=== PATIENT | female | born 2000 | race Caucasian/White ===

== ENCOUNTER 2025-01-01 16:10 | Observation (INO) | payer BC, SELFPAY ==
[2025-01-01 16:15] VITALS: BP 130/98; PULSE 103; RESP 18; TEMP 36.8; O2SAT 98; BMI 33.0
--- NOTE | 2025-01-01 16:27 | CT_ITS ---
PROCEDURE INFORMATION: Exam: CTA Chest With Contrast Exam date and time: 01/01/2025 5:34 PM Age: 24 years old Clinical indication: Other: Shortness of air, decreased breath sounds lft, pna TECHNIQUE: Imaging protocol: Computed tomographic angiography of the chest with contrast. Exam focused on the arteries. 3D rendering (Not supervised by radiologist): MIP and/or 3D reconstructed images were created by the technologist. Radiation optimization: All CT scans at this facility use at least one of these dose optimization techniques: automated exposure control; mA and/or kV adjustment per patient size (includes targeted exams where dose is matched to clinical indication); or iterative reconstruction. Contrast material: ISO 370; Contrast volume: 70 ml; Contrast route: INTRAVENOUS (IV); COMPARISON: No relevant prior studies available. FINDINGS: Pulmonary arteries: Normal. No pulmonary emboli. Aorta: Unremarkable. No aortic aneurysm. No aortic dissection. Lungs: There is near-complete consolidative atelectasis of the left lower lobe. There is a masslike area of soft tissue attenuation measuring approximately 3 cm in diameter in the left hilum which appears to produce obstruction of the left lower lobe bronchus. Right lung is clear. Pleural spaces: Unremarkable. No pneumothorax. No pleural effusion. Heart: Unremarkable. No cardiomegaly. No pericardial effusion. Lymph nodes: Masslike opacity in the left hilum may represent lymphadenopathy. Mild right paratracheal lymphadenopathy also noted. Bones/joints: Unremarkable. No acute fracture. Soft tissues: Unremarkable. IMPRESSION: Near-complete left lower lobe consolidative atelectasis with ill-defined left hilar mass producing apparent obstruction of the left lower lobe bronchus. This may represent lymphadenopathy or mass of bronchogenic origin. Mild right paratracheal lymphadenopathy also noted.
[2025-01-01 16:31] VITALS: BP 113/74; PULSE 97; RESP 20; O2SAT 97
--- NOTE | 2025-01-01 16:35 | ED_ITS ---
<Statement entered by Horacio Kuo MD - 01/01/25 21:50> I was consulted by the ASHISH, and we discussed the complexity of the problems being addressed. I approved the treatment and management plan for this patient's care in the emergency department, thus performing a substantive portion of the medical decision making. Horacio Kuo MD Discharge Plan Disposition Patient Disposition: Admitted Condition: Good Clinical Impressions Clinical Impression: Mass of left lung Discharge ED Provider: Horacio Kuo HPI <KARLIE Wright - Last Filed: 01/01/25 20:23> General Chief Complaint: Shortness of Breath/Dyspnea Stated Complaint: sent by phy-poss collapsed LT lung Time Seen by Provider: 01/01/25 16:16 Mode of Arrival: Ambulatory Source of Information: Patient Description of Symptoms (Recalled from ER Triage Doc. by RN): Pt presents with c/o possible collapsed lung. PT states she was diagnosed with pneumonia 2 weeks ago, completed antibiotic treatment. Pt had a follow up x-ray appointment due to patient feeling short of breath. X-ray result showed that her left lung was partially collapsed History of Present Illness HPI narrative: 24-year-old female with a 2-week history of shortness of breath, pleuritic type chest pain subjective fever and chills, patient was originally diagnosed with pneumonia , a couple weeks ago, finished a round of amoxicillin and doxycycline p.o. antibiotics, initially got better, but over the last several days she has had some worsening shortness of breath, and pleuritic type chest pain, she was seen by outside facility today had a chest x-ray performed which showed possible collapsed lung , she was instructed to come to the emergency department immediately. Patient was also diagnosed with influenza A 1 week ago. She denies any abdominal pain nausea vomiting constipation diarrhea, no urinary type symptomatology, patient is a former smoker, denies any alcohol or other drug use, other past medical history consistent with hyperlipidemia, anxiety/depression, initial triage vitals notable for tachycardia, SpO2 is 9495% on room air. Otherwise unremarkable vital signs. Related Data Allergies Allergy/AdvReac Type Severity Reaction Status Date / Time No Known Allergies Allergy Verified 01/01/25 16:49 PFSH <KARLIE Wright - Last Filed: 01/01/25 20:23> [facility] Disclaimer: The information contained in this section may have been updated after the patient was seen, as this information can be updated by other users. Social History (Updated 01/01/25 @ 19:53 by Arturo Ramos APRN) Smoking Status: Former smoker how long ago did patient quit smoking: Patient now vapes last time vaping was 2 weeks ago second hand exposure: No alcohol intake: never substance use type: denies use current occupational status: employed Travel in the last 8 weeks: None Have you lived/traveled outside [place] in past 30 days?: No Contact w/someone who lives/traveled outside US past 30 days?: No Exposure to someone with infectious disease in past 14 days?: No Do you have a fever (greater than 100.4 F or 38 C)?: No Have you tested positive for COVID-19: No Exposed to someone with COVID-19 in past 14 days?: No Do you have a sore throat?: No Do you have a cough?: No Do you have a headache?: No Do you have any weakness?: No Are you experiencing any nausea/vomitting?: No Do you have any diarrhea?: No Are you experiencing any unusual bleeding?: No Do you have any muscle aches/pain?: No Do you have any abdominal pain?: No Are you experiencing loss of taste or smell?: No <KARLIE Wright - Last Filed: 01/01/25 20:23> ROS Obtained: Yes All systems reviewed & no additional complaints except as documented Physical Exam <KARLIE Wright - Last Filed: 01/01/25 20:23> General General appearance: alert and in no apparent distress Head Head exam: atraumatic and normocephalic Eye Eye exam: Present normal appearance, PERRL and EOMI Neck Neck exam: Present full ROM; Absent meningismus Chest Chest inspection: Present normal inspection Respiratory Respiratory exam: Present other (There is some mild decreased breath sounds on the left, otherwise no Rales, no crackles, no tachypnea noted, no supracostal intercostal retractions at this time); Absent respiratory distress, wheezes, stridor, accessory muscle use or prolonged expiratory phase Cardiovascular Cardiovascular exam: Present normal rhythm and other (Pulses equal and symmetric in bilateral upper and lower extremities) Abdominal Exam Abdominal exam: Absent distention Extremities Exam Extremities exam: Absent edema Neurological Exam Neurological exam: Present alert Psychiatric Psychiatric exam: Present normal affect Skin Skin exam: Present warm and dry HEART Score <KARLIE Wright - Last Filed: 01/01/25 20:23> HEART Score HEART Score assessment performed?: Yes History (anamnesis): Slightly suspicious ECG: Normal Age: <45 years Risk factors: No known risk factors Troponin: </= normal limit HEART Score: 0 Critical Care <KARLIE Wright - Last Filed: 01/01/25 20:23> Critical Care Time Critical Care Time: No Medical Decision Making <KARLIE Wright - Last Filed: 01/01/25 20:23> Medical Records Medical records reviewed: Yes I reviewed the patient's medical records. Lam Inquiry Pt receiving controlled substance: No Lam was queried for this patient: No Vital Signs Vital Signs: 01/01/25 16:15 01/01/25 16:31 01/01/25 20:00 Temperature 98.3 F 98.8 F Temperature Source Oral Oral Pulse Rate 97 H 98 H Pulse Rate [Right] 103 H Respiratory Rate 18 20 24 Blood Pressure 113/74 120/70 Blood Pressure [Right Arm] 130/98 H Blood Pressure Mean [Right Arm] 108 Blood Pressure Source Automatic Cuff Blood Pressure Source [Right Arm] Automatic Cuff Blood Pressure Position Sitting Blood Pressure Position [Right Arm] Sitting 02 Sat by Pulse Oximetry 98 97 Oxygen Delivery Method Room Air Room Air Room Air Lab Data Lab results reviewed: Yes I reviewed the patient's lab results. Labs: Lab Results 01/01/25 16:25: WBC 8.9, RBC 4.97, Hgb 14.0, Hct 41.9, MCV 84.3, MCH 28.2, MCHC 33.4, RDW 12.1, Plt Count 285, MPV 9.4, Neut % (Auto) 68.2, Lymph % (Auto) 23.9, Avery % (Auto) 6.3, Eos % (Auto) 0.8, Baso % (Auto) 0.5, Neut # (Auto) 6.0, Lymph # (Auto) 2.1, Avery # (Auto) 0.6, Eos # (Auto) 0.1, Baso # (Auto) 0.0, Sodium 134 L, Potassium 3.6, Chloride 103, Carbon Dioxide 26, Anion Gap 8.6, BUN 8, Creatinine 0.90, Estimated Creat Clear 121, Estimated GFR 77, Est GFR ( Amer) 93, Glucose 122 H, Calcium 9.5, Magnesium 1.7, Total Bilirubin 0.9, AST 33, ALT 34, Alkaline Phosphatase 78, Troponin I < 0.01, NT-Pro-B Natriuret Pep < 20.0, Total Protein 7.7, Albumin 4.6, Globulin 3.1, Albumin/Globulin Ratio 1.5 01/01/25 16:42: Urine Color Yellow, Urine Appearance Clear, Urine pH 6.5, Ur Specific Rex 1.020, Urine Protein Negative, Urine Glucose (UA) Negative, Urine Ketones Negative, Urine Blood Negative, Urine Nitrate Negative, Urine Bilirubin Negative, Urine Urobilinogen 0.2, Ur Leukocyte Esterase Negative, Urine RBC Occasional, Urine WBC Occasional, Ur Squamous Epith Cells 3-5, Urine Bacteria Trace, Urine HCG, Qual Negative 01/01/25 19:20: Troponin I < 0.01 01/01/25 16:25 01/01/25 16:25 Response Orders (Tests/Meds): ED MEDICATIONS Generic Name Dose Route Start Last Admin Trade Name Freq PRN Reason Stop Dose Admin Piperacillin Sod/Tazobactam 50 mls @ 100 mls/hr 01/02/25 00:27 Sod 3.375 gm/ Sodium Chloride IV 01/12/25 00:26 Q6H TESSIE Discontinued Medications Generic Name Dose Route Start Last Admin Trade Name Freq PRN Reason Stop Dose Admin Piperacillin Sod/Tazobactam 50 mls @ 100 mls/hr 01/01/25 18:27 01/01/25 19:12 Sod 3.375 gm/ Sodium Chloride IV 01/01/25 18:56 100 mls/hr ONCE ONE Administration Iopamidol 70 ml 01/01/25 17:34 01/01/25 17:36 Iopamidol-370 (76%);100ml Bottle IV 01/01/25 17:35 70 ml ONCE ONE Administration Sodium Chloride 10 ml 01/01/25 17:34 01/01/25 17:35 Sodium Chloride 0.9% 10ml Syr (Rad Only) IV 01/01/25 17:35 10 ml ONCE ONE Administration Sodium Chloride 50 ml 01/01/25 17:34 01/01/25 17:35 0.9 % Sodium Chloride 50 Ml Vial IV 01/01/25 17:35 50 ml ONCE ONE Administration ORDERS Category Date Time Status CT angio chest PE protocol Stat Cat Scan 01/01/25 16:27 Completed Pulmonology Consult [Consult to Pulmonology] [CONS] Cons 01/01/25 18:39 Active Routine CRP [C-Reactive Protein] AMLAB Lab 01/02/25 06:00 Ordered Complete Blood Count Auto Diff AMLAB Lab 01/02/25 06:00 Ordered Complete Blood Count Auto Diff Stat Lab 01/01/25 16:25 Completed Comprehensive Metabolic Panel AMLAB Lab 01/02/25 06:00 Ordered Comprehensive Metabolic Panel Stat Lab 01/01/25 16:25 Completed Erythrocyte Sedimentation Rate AMLAB Lab 01/02/25 06:00 Ordered Histoplasma [place] Ag S AMLAB Lab 01/02/25 06:00 Ordered LDH [Lactate Dehydrogenase] AMLAB Lab 01/02/25 06:00 Ordered Magnesium AMLAB Lab 01/02/25 06:00 Ordered Magnesium Stat Lab 01/01/25 16:25 Completed NT Pro Brain Natriuretic Pep. Stat Lab 01/01/25 16:25 Completed Rapid PCR Covid and Flu A/B Stat Lab 01/01/25 18:52 Received Troponin I Q3H Lab 01/01/25 19:20 Completed Troponin I Q3H Lab 01/01/25 22:30 Ordered Troponin I Stat Lab 01/01/25 16:25 Completed Urinalysis and Microscopic Stat Lab 01/01/25 16:42 Completed Urine , HCG Qual. Stat Lab 01/01/25 16:42 Completed Blood Culture Stat Micro 01/01/25 18:51 Received MDM Narrative Medical Decision Narrative: 24-year-old female presents emergency department with shortness of breath and chest pain, differential diagnosis of but limited to, pneumonia, acute bronchitis, pneumothorax, pleural effusion, PE, cardiac arrhythmia, electrolyte disturbance, COPD exacerbation, acute pulmonary edema. Obtain basic laboratory studies, CTA chest with and without contrast, EKG, opponent, proBNP, urinalysis, magnesium level, hCG urine qualitative, will obtain rapid antigen swabs for covid and flu Urinalysis unremarkable, urine hCG qualitative negative CMP unremarkable Reviewed the patient's CTA chest with and without contrast on the corresponding radiologic report, near complete left lower lobe consolidative atelectasis with ill-defined left hilar mass producing apparent obstruction of the left lower lobe bronchus, this may represent lymphadenopathy or mass of bronchogenic origin, mild right paratracheal lymphadenopathy also noted. CBC is unremarkable I discussed patient case with the perfumer on-call Dr. Hendrix, at approximately 6:20 PM he recommends admission to the hospitalist service, starting prophylactic IV Zosyn, with bronchoscopy in the morning n.p.o. after midnight. Discussed patient case with the on-call hospitalist 6:30 PM, he is agree with current admission plan/treatment plan. Patient be admitted with pulmonology to see. Bronchoscope in the morning. Will obtain blood cultures, n.p.o. after midnight, IV Zosyn. I discussed need for admission with the patient family bedside patient famine agreement current treatment plan/admission plan. <Horacio Kuo MD - Last Filed: 01/01/25 16:43> Vital Signs Vital Signs: 01/01/25 16:15 01/01/25 16:31 01/01/25 20:00 Temperature 98.3 F 98.8 F Temperature Source Oral Oral Pulse Rate 97 H 98 H Pulse Rate [Right] 103 H Respiratory Rate 18 20 24 Blood Pressure 113/74 120/70 Blood Pressure [Right Arm] 130/98 H Blood Pressure Mean [Right Arm] 108 Blood Pressure Source Automatic Cuff Blood Pressure Source [Right Arm] Automatic Cuff Blood Pressure Position Sitting Blood Pressure Position [Right Arm] Sitting 02 Sat by Pulse Oximetry 98 97 Oxygen Delivery Method Room Air Room Air Room Air Lab Data Labs: Lab Results 01/01/25 16:25: WBC 8.9, RBC 4.97, Hgb 14.0, Hct 41.9, MCV 84.3, MCH 28.2, MCHC 33.4, RDW 12.1, Plt Count 285, MPV 9.4, Neut % (Auto) 68.2, Lymph % (Auto) 23.9, Avery % (Auto) 6.3, Eos % (Auto) 0.8, Baso % (Auto) 0.5, Neut # (Auto) 6.0, Lymph # (Auto) 2.1, Avery # (Auto) 0.6, Eos # (Auto) 0.1, Baso # (Auto) 0.0, Sodium 134 L, Potassium 3.6, Chloride 103, Carbon Dioxide 26, Anion Gap 8.6, BUN 8, Creatinine 0.90, Estimated Creat Clear 121, Estimated GFR 77, Est GFR ( Amer) 93, Glucose 122 H, Calcium 9.5, Magnesium 1.7, Total Bilirubin 0.9, AST 33, ALT 34, Alkaline Phosphatase 78, Troponin I < 0.01, NT-Pro-B Natriuret Pep < 20.0, Total Protein 7.7, Albumin 4.6, Globulin 3.1, Albumin/Globulin Ratio 1.5 01/01/25 16:42: Urine Color Yellow, Urine Appearance Clear, Urine pH 6.5, Ur Specific Rex 1.020, Urine Protein Negative, Urine Glucose (UA) Negative, Urine Ketones Negative, Urine Blood Negative, Urine Nitrate Negative, Urine Bilirubin Negative, Urine Urobilinogen 0.2, Ur Leukocyte Esterase Negative, Urine RBC Occasional, Urine WBC Occasional, Ur Squamous Epith Cells 3-5, Urine Bacteria Trace, Urine HCG, Qual Negative 01/01/25 19:20: Troponin I < 0.01 Response Orders (Tests/Meds): ED MEDICATIONS Generic Name Dose Route Start Last Admin Trade Name Freq PRN Reason Stop Dose Admin Piperacillin Sod/Tazobactam 50 mls @ 100 mls/hr 01/02/25 00:27 Sod 3.375 gm/ Sodium Chloride IV 01/12/25 00:26 Q6H TESSIE Discontinued Medications Generic Name Dose Route Start Last Admin Trade Name Freq PRN Reason Stop Dose Admin Piperacillin Sod/Tazobactam 50 mls @ 100 mls/hr 01/01/25 18:27 01/01/25 19:12 Sod 3.375 gm/ Sodium Chloride IV 01/01/25 18:56 100 mls/hr ONCE ONE Administration Iopamidol 70 ml 01/01/25 17:34 01/01/25 17:36 Iopamidol-370 (76%);100ml Bottle IV 01/01/25 17:35 70 ml ONCE ONE Administration Sodium Chloride 10 ml 01/01/25 17:34 01/01/25 17:35 Sodium Chloride 0.9% 10ml Syr (Rad Only) IV 01/01/25 17:35 10 ml ONCE ONE Administration Sodium Chloride 50 ml 01/01/25 17:34 01/01/25 17:35 0.9 % Sodium Chloride 50 Ml Vial IV 01/01/25 17:35 50 ml ONCE ONE Administration ORDERS Category Date Time Status CT angio chest PE protocol Stat Cat Scan 01/01/25 16:27 Completed Pulmonology Consult [Consult to Pulmonology] [CONS] Cons 01/01/25 18:39 Active Routine CRP [C-Reactive Protein] AMLAB Lab 01/02/25 06:00 Ordered Complete Blood Count Auto Diff AMLAB Lab 01/02/25 06:00 Ordered Complete Blood Count Auto Diff Stat Lab 01/01/25 16:25 Completed Comprehensive Metabolic Panel AMLAB Lab 01/02/25 06:00 Ordered Comprehensive Metabolic Panel Stat Lab 01/01/25 16:25 Completed Erythrocyte Sedimentation Rate AMLAB Lab 01/02/25 06:00 Ordered Histoplasma [place] Ag S AMLAB Lab 01/02/25 06:00 Ordered LDH [Lactate Dehydrogenase] AMLAB Lab 01/02/25 06:00 Ordered Magnesium AMLAB Lab 01/02/25 06:00 Ordered Magnesium Stat Lab 01/01/25 16:25 Completed NT Pro Brain Natriuretic Pep. Stat Lab 01/01/25 16:25 Completed Rapid PCR Covid and Flu A/B Stat Lab 01/01/25 18:52 Received Troponin I Q3H Lab 01/01/25 19:20 Completed Troponin I Q3H Lab 01/01/25 22:30 Ordered Troponin I Stat Lab 01/01/25 16:25 Completed Urinalysis and Microscopic Stat Lab 01/01/25 16:42 Completed Urine , HCG Qual. Stat Lab 01/01/25 16:42 Completed Blood Culture Stat Micro 01/01/25 18:51 Received ECG Data Tracing #1: ECG Narrative: Independently interpreted by me rate is 97, rhythm is regular, axis is normal, no ST elevation in anatomical contiguous leads, QTc 380
[2025-01-01 16:39] LABS: Eosinophils # 0.1 K/mm3 (0.0-0.4); Eosinophils % 0.8 % (0.1-12.0); Lymphocytes # 2.1 K/mm3 (0.7-4.5)
--- NOTE | 2025-01-01 16:41 | ECG_ITS ---
APPROVED REPORT Exam: Resting ECG HR:97 bpm ECG Measurements Heart Rate 97 AXES MD 139 P 50 QRSd 83 QRS 72 QT 326 T 7 QTc 380 Conclusion SINUS RHYTHM NONSPECIFIC T-WAVE ABNORMALITY BORDERLINE ECG Electronically signed by : ION LAZO, 01/02/2025 00:19:31
[2025-01-01 16:56] LABS: Microscopic, Urine URINE MICROSCOPIC (MICROSCOPIC)
[2025-01-01 16:57] LABS: Appearance,Urine CLEAR (Clear); Bilirubin,Urine Negative (Negative); Blood, Urine Negative (Negative); Color,Urine YELLOW (Yellow); Glucose,Urine (UA) Negative (Negative); Ketones,Urine Negative (Negative); Leukocyte Esterase,Urine Negative (Negative); Nitrate,Urine Negative (Negative); PH,Urine 6.5 (5.0-8.5); Protein,Urine Negative (Negative); Urobilinogen,Urine 0.2 EU/dl (0.2)
[2025-01-01 16:59] LABS: Urine Pregnancy, HCG Qual. Negative (Negative)
--- NOTE | 2025-01-01 17:31 | PC.NURSE ---
pt to ct scan via wheelchair
[2025-01-01] MEDS: 0.9 % SODIUM CHLORIDE 50 ML VIAL IV (17:35)
[2025-01-01] MEDS: SODIUM CHLORIDE 0.9% 10ML SYR (RAD ONLY) 10 ML IV (17:35)
[2025-01-01] MEDS: IOPAMIDOL-370 (76%);100ML BOTTLE 70 ML IV (17:36)
[2025-01-01 17:41] LABS: Bacteria,Urine Trace /lpf; RBC,Urine Occasional #/hpf (0-3); WBC,Urine Occasional #/hpf (0-3)
--- NOTE | 2025-01-01 17:41 | PC.NURSE ---
pt back from ct scan
[2025-01-01 17:47] LABS: Albumin Level 4.6 g/dl (3.5-5.0); Chloride 103 mmol/L (98-107); Potassium 3.6 mmoL/L (3.5-5.1); Sodium 134 mmol/L (136-145)
[2025-01-01 17:50] LABS: Alanine Aminotransferase 34 U/L (12-78); Albumin/Globulin Ratio 1.5 (1.1-1.8); Alkaline Phosphatase 78 U/L (38-126); Anion Gap 8.6 mEq/L (5-15); Aspartate Amino Transferase 33 U/L (14-36); Bilirubin,Total 0.9 mg/dl (0.2-1.3); Blood Urea Nitrogen 8 mg/dl (7-17); Calcium 9.5 mg/dl (8.4-10.2); Carbon Dioxide 26 mmol/L (22.0-30.0); Creatinine Clearance Estimated 121 mL/min (50-200); Estimated Glomerular Filt Rate 77 ml/min (>60); GFR (African American) 93 ML/MIN (>60); Globulin 3.1 g/dL (1.3-3.2); Glucose 122 mg/dl (74-100); Total Protein,Serum 7.7 g/dl (6.3-8.2)
[2025-01-01 17:51] LABS: Magnesium 1.7 mg/dl (1.6-2.3)
[2025-01-01 18:00] LABS: NT Pro Brain Natriuretic Pep. < 20.0 pg/mL (0-125)
[2025-01-01 18:11] LABS: Basophils % 0.5 % (0.1-2.0); Hematocrit 41.9 % (37.0-47.0); Lymphocytes % 23.9 % (10-50); Mean Corpuscular HGB Conc 33.4 g/dL (31.8-35.4); Mean Corpuscular Hemoglobin 28.2 pg (27.0-31.2); Mean Corpuscular Volume 84.3 fl (81-99); Mean Platelet Volume 9.4 fl (7.4-10.4); Monocytes # 0.6 K/mm3 (0.1-1.0); Monocytes % 6.3 % (1.7-9.3); Neutrophils % 68.2 % (37.0-80.0); Platelet Count 285 K/mm3 (142-424); Red Blood Count 4.97 M/mm3 (4.20-5.40); Red Cell Distribution Width 12.1 % (11.5-17.5); White Blood Count 8.9 K/mm3 (4.8-10.8)
--- NOTE | 2025-01-01 18:14 | PC.NURSE ---
Dr Hendrix paged for KARLIE Galvez. The coal crusher operator called and left message for him to call ER
[2025-01-01 18:49] LABS: Troponin I < 0.01 ng/ml (0.00-0.034)
[2025-01-01 19:00] LABS: Coronavirus 19, PCR Not Detected (NotDetected); Influenza A, PCR Not Detected (NotDetected); Influenza B, PCR Not Detected (NotDetected)
[2025-01-01] MEDS: PIPERACILLIN/TAZO 3.375 GM in 0.9 % SODIUM CHLORIDE 50 ML IV (19:12)
--- NOTE | 2025-01-01 19:25 | PC.NURSE ---
rounded on pt at this time. pt voices no needs. call light in reach.
--- NOTE | 2025-01-01 19:35 | PC.NURSE ---
Report called to Kelsey RN Pt transported to floor via wheelchair with IV. Skin pink warm and dry REsp full and very slightly labored Speech clear and appropriate
--- NOTE | 2025-01-01 19:44 | P.HP_ITS ---
<Statement entered by Nixon Burns MD - 01/10/25 11:02> I personally examined patient and agree with the plan of care outlined by the PROFESSOR OF PATHOLOGY. 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 Noting that she does vape but her last time she vape was approximately 2 weeks ago. She began to feel ill ended up being tested positive for flu. Also placed on 2 different antibiotics with no improvement. Patient also noted placed on steroids with no effect. Patient now has a cough that she says is dry does not get anything up. Noting that if she takes a deep breath it causes left lung pain. But short shallow breaths do not hurt. Was seen at an outside facility for possible collapsed lung on chest x-ray. She has come to the emergency room. Where CT scan was done. Also please note that the patient was diagnosed with influenza A 1 week ago. Present room air saturations 94%. Mild tachycardia. The CT scan was done here that showed a masslike lesion left lower base. With complete atelectasis of the left lower lung medial aspect. Daytime provider Dr. Katz was also informed to the patient has placed orders including pulmonary consult. Patient has been told that she will be n.p.o. after midnight. For possible bronchoscopy or other procedure. Reviewed family history in grandparents on both sides there has been cancer and also a great uncle but the people were much older into their 60s or 70s before these cancers develop. There is no history of any genetic testing checking for BRCA1 or BRCA2. Patient did note she had a lumpectomy done of one of her breast that was benign. And has not been in the hospital overnight since she was a young child. [facility] Disclaimer: The information contained in this section may have been updated after the patient was seen, as this information can be updated by other users. Social History (Updated 01/01/25 @ 19:53 by Arturo Ramos APRN) Smoking Status: Former smoker how long ago did patient quit smoking: Patient now vapes last time vaping was 2 weeks ago second hand exposure: No alcohol intake: never substance use type: denies use current occupational status: employed Travel in the last 8 weeks: None Other Medical History Have you received the Flu Vaccine for this season: No Have you received the Pneumonia Vaccine: No Review of Systems Review of Systems Review of systems:: pertinent systems reviewed and negative unless documented below Constitutional Constitutional: Reports as per HPI, Reports body ache(s) and Reports poor appet ite Comments: Has lost some weight but was dieting Eyes Eyes: Reports as per HPI ENT Ears, Nose, Mouth, and Throat: Reports as per HPI *Cardiovascular Cardiovascular: Reports as per HPI and Reports dyspnea *Respiratory Respiratory: Reports chest congestion, Reports cough and Reports dyspnea Comments: Chest pain on deep breath *Gastrointestinal Gastrointestinal: Reports as per HPI *Genitourinary Genitourinary: Reports as per HPI *Musculoskeletal Musculoskeletal: Reports as per HPI Integumentary/Breasts Skin/Breast: Reports as per HPI *Neurologic Neurologic: Reports as per HPI Psychiatric Psychiatric: Reports as per HPI Endocrine Endocrine: Reports as per HPI Hematologic/Lymphatic Hematologic/Lymphatic: Reports as per HPI Meds Home Medications and Allergies New Prescriptions to Start Prescriptions: Allergies Allergy/AdvReac Type Severity Reaction Status Date / Time No Known Allergies Allergy Verified 01/01/25 16:49 Exam Data for Last 24 hours Vital signs and Labs for Last 24 Hours: Temp Pulse Resp BP Pulse Ox O2 Del Method 98.3 F 97 H 20 113/74 97 Room Air 01/01/25 16:15 01/01/25 16:31 01/01/25 16:31 01/01/25 16:31 01/01/25 16:31 01/01/25 16:31 Laboratory Results - last 24 hr 01/01/25 16:25: WBC 8.9, RBC 4.97, Hgb 14.0, Hct 41.9, MCV 84.3, MCH 28.2, MCHC 33.4, RDW 12.1, Plt Count 285, MPV 9.4, Neut % (Auto) 68.2, Lymph % (Auto) 23.9, [place] % (Auto) 6.3, Eos % (Auto) 0.8, Baso % (Auto) 0.5, Neut # (Auto) 6.0, Lymph # (Auto) 2.1, [place] # (Auto) 0.6, Eos # (Auto) 0.1, Baso # (Auto) 0.0, Sodium 134 L, Potassium 3.6, Chloride 103, Carbon Dioxide 26, Anion Gap 8.6, BUN 8, Creatinine 0.90, Estimated Creat Clear 121, Estimated GFR 77, Est GFR ( Amer) 93, Glucose 122 H, Calcium 9.5, Magnesium 1.7, Total Bilirubin 0.9, AST 33, ALT 34, Alkaline Phosphatase 78, Troponin I < 0.01, NT-Pro-B Natriuret Pep < 20.0, Total Protein 7.7, Albumin 4.6, Globulin 3.1, Albumin/Globulin Ratio 1.5 01/01/25 16:42: Urine Color Yellow, Urine Appearance Clear, Urine pH 6.5, Ur Specific [place] 1.020, Urine Protein Negative, Urine Glucose (UA) Negative, Urine Ketones Negative, Urine Blood Negative, Urine Nitrate Negative, Urine Bilirubin Negative, Urine Urobilinogen 0.2, Ur Leukocyte Esterase Negative, Urine RBC Occasional, Urine WBC Occasional, Ur Squamous Epith Cells 3-5, Urine Bacteria Trace, Urine HCG, Qual Negative I & O for Last 24 hours: Intake & Output 12/30/24 12/31/24 01/01/25 01/02/25 05:59 05:59 05:59 05:59 Weight 175 lb Radiology Reports for the Last 24 Hours: CT CHEST Narrative: here is near-complete consolidative atelectasis of the left lower lobe. There is a masslike area of soft tissue attenuation measuring approximately 3 cm in diameter in the left hilum which appears to produce obstruction of the left lower lobe bronchus. Right lung is clear. Pleural spaces: Unremarkable. No pneumothorax. No pleural effusion. Heart: Unremarkable. No cardiomegaly. No pericardial effusion. Lymph nodes: Masslike opacity in the left hilum may represent lymphadenopathy. Mild right paratracheal lymphadenopathy also noted. Constitutional Constitutional: no acute distress and obese Comments: Patient resting comfortably in bed head elevated *Routine HEENT Exam Head: Present normocephalic and atraumatic Eye: Present EOMI, PERRL and normal accommodation ENT: Present mucous membranes moist, oropharynx clear, nares patent and external ear normal *Routine Neck Exam Neck: Present supple and full ROM Comments: No tenderness or masses felt Routine Chest/Breast/Axilla Exam Comments: No chest wall or breast tenderness noted *Routine Respiratory Exam Respiratory: Present CTA bilaterally, normal respiratory effort, able to speak in complete sentences and symmetric chest movement Comments: Examination of breath sounds is completely normal. She has equal breath sounds both lower lungs bilaterally.. She does have a dry cough *Routine Cardiovascular Exam Cardiovascular: Present RRR, Normal S1 and Normal S2 Comments: Normal cardiovascular *Routine Abdominal Exam Abdominal: Present soft, normoactive bowel sounds and obese Comments: No tenderness found *Routine Rectal Exam Rectal:: deferred *Routine Genitalia Exam Genitalia:: deferred *Routine Extremities Exam Extremities: Present full ROM, pulses intact and normal capillary refill Routine Back/Spine/Pelvis Exam Back/Spine: Present full ROM and CVA tenderness Comments: Back normal exam visually no signs of discomfort can moves with good full range of motion *Routine Skin Exam Skin: Present intact, dry, warm and normal turgor *Routine Neurological Exam Neurological: Present alert, oriented X3, CN II-XII intact, normal reflexes, moving all extremities, normal tone, vision grossly intact, hearing grossly intact and normal speech Routine Psychiatric Exam Psychiatric: Present normal affect, normal thought process, cooperative, good insight and good judgment H&P: Result Impressions 1. Respiratory infection post flu with atelectasis left lower lung, possible unidentified infectious component 2. Left lower lung question mass versus lymph node lymphadenopathy blocking bronchial Imaging and Cardiology CT scan - chest: Additional comments: here is near-complete consolidative atelectasis of the left lower lobe. There is a masslike area of soft tissue attenuation measuring approximately 3 cm in diameter in the left hilum which appears to produce obstruction of the left lower lobe bronchus. Right lung is clear. Pleural spaces: Unremarkable. No pneumothorax. No pleural effusion. Heart: Unremarkable. No cardiomegaly. No pericardial effusion. Lymph nodes: Masslike opacity in the left hilum may represent lymphadenopathy. Mild right paratracheal lymphadenopathy also noted. Assessment and Plan *Assessment and plan (1) Mass of left lung: Status: Acute Category: Medical Code(s): R91.8 - Other nonspecific abnormal finding of lung field (2) Pneumonia involving left lung: Status: Acute Qualifiers: Pneumonia type: due to unspecified organism Lung location: lower lobe of lung Qualified Code(s): J18.9 - Pneumonia, unspecified organism Category: Medical Code(s): J18.9 - Pneumonia, unspecified organism (3) Atelectasis of left lung: Status: Acute Category: Medical Code(s): J98.11 - Atelectasis (4) Cough: Status: Acute Qualifiers: Cough type: acute Qualified Code(s): R05.1 - Acute cough Category: Medical Code(s): R05.9 - Cough, unspecified (5) Post-influenza syndrome: Status: Acute Category: Medical Code(s): G93.31 - Postviral fatigue syndrome Plan 1. Unsure of what this left lower lung is a mass versus a lymph node that is blocked blocking one of the bronchial. Pulmonology has been consulted will evaluate the patient tomorrow possibly bronchoscopy.. Will continue upon antibiotics. At present patient does not need any oxygen. Patient and family updated on future medical plans as to the evaluation by pulmonology to see the patient in the morning
--- NOTE | 2025-01-01 19:52 | PC.NURSE ---
Patient arrived to floor via wheelchair from ED at 19:50.
[2025-01-01 20:00] VITALS: BP 120/70; PULSE 98; RESP 24; TEMP 37.1; O2SAT 96
[2025-01-01 20:05] VITALS: BP 121/70; PULSE 92; RESP 17; TEMP 37.3; O2SAT 100; BMI 33.0
[2025-01-01 20:07] LABS: Troponin I < 0.01 ng/ml (0.00-0.034)
[2025-01-01] MEDS: MAGNESIUM SULFATE IN WATER 2 GM/50 ML PIGGYBACK IV ×2 (22:37→23:40)
[2025-01-01 23:30] LABS: Troponin I < 0.01 ng/ml (0.00-0.034)
[2025-01-01] MEDS: MELATONIN 5MG TABLET 5 MG PO (23:58)
[2025-01-02] VITALS (16 sets, daily range): BP systolic 98–149; BP diastolic 60–95; PULSE 69–111; RESP 16–22; TEMP 36.6–37.2; O2SAT 91–100; BMI 33.0
--- NOTE | 2025-01-02 | XR_ITS ---
FINAL REPORT CLINICAL HISTORY: BRONCH IN OR FT 1.3 MINS 26.89 mGy FINDINGS: FLUOROSCOPY LESS THAN 1 HOUR HISTORY: Fluoroscopy guidance. Fluoroscopic guidance was provided for bronchoscopy in the OR. A single spot film was obtained. A total of 1.3 minutes of fluoroscopy time were used. Total DAP: 26.89 mGy IMPRESSION: As above. Reviewed, Interpreted and Dictated by Ginger Holguin MD Transcribed by Jocelyn Sam Authenticated and [facility]
[2025-01-02] MEDS: PIPERCILLIN/TAZO 3.375 GM in 0.9 % SODIUM CHLORIDE 50 ML IV ×3 (00:46→15:22)
--- NOTE | 2025-01-02 05:51 | PC.NURSE ---
Pt.was admitted overnight with c/o pneumonia and possible left lower lung mass. Pt is alert and orientated x 4. Pt. is on room air. Pt. c/o pain to chest with deep inspiration. Pt. states she had 2 courses of antibiotics for the pneumonia and it did not get better. Pt. denies fever, has a cough. Admitted for pulmonary consult. Pt. slept well overnight. VSS, Personal items and call núñez in reach.
[2025-01-02 06:59] LABS: Basophils % 0.3 % (0.1-2.0); Eosinophils # 0.2 K/mm3 (0.0-0.4); Hematocrit 37.8 % (37.0-47.0); Hemoglobin 12.6 g/dL (12.2-16.2); Lymphocytes # 2.4 K/mm3 (0.7-4.5); Lymphocytes % 32.3 % (10-50); Mean Corpuscular HGB Conc 33.3 g/dL (31.8-35.4); Mean Corpuscular Hemoglobin 28.1 pg (27.0-31.2); Mean Corpuscular Volume 84.2 fl (81-99); Mean Platelet Volume 9.2 fl (7.4-10.4); Monocytes # 0.7 K/mm3 (0.1-1.0); Monocytes % 9.7 % (1.7-9.3); Neutrophils % 54.4 % (37.0-80.0); Platelet Count 233 K/mm3 (142-424); Red Blood Count 4.49 M/mm3 (4.20-5.40); Red Cell Distribution Width 12.3 % (11.5-17.5); White Blood Count 7.3 K/mm3 (4.8-10.8)
[2025-01-02 07:04] LABS: Alanine Aminotransferase 27 U/L (12-78); Albumin Level 3.9 g/dl (3.5-5.0); Albumin/Globulin Ratio 1.4 (1.1-1.8); Alkaline Phosphatase 61 U/L (38-126); Anion Gap 6.8 mEq/L (5-15); Aspartate Amino Transferase 27 U/L (14-36); Bilirubin,Total 1.3 mg/dl (0.2-1.3); Blood Urea Nitrogen 7 mg/dl (7-17); Calcium 8.4 mg/dl (8.4-10.2); Carbon Dioxide 27 mmol/L (22.0-30.0); Chloride 106 mmol/L (98-107); Creatinine Clearance Estimated 121 mL/min (50-200); Estimated Glomerular Filt Rate 77 ml/min (>60); GFR (African American) 93 ML/MIN (>60); Globulin 2.7 g/dL (1.3-3.2); Glucose 107 mg/dl (74-100); Lactate Dehydrogenase 177 U/L (313-618); Potassium 3.8 mmoL/L (3.5-5.1); Sodium 136 mmol/L (136-145); Total Protein,Serum 6.6 g/dl (6.3-8.2)
[2025-01-02 07:10] LABS: C-Reactive Protein 44.6 mg/L (0-4)
[2025-01-02 08:00] LABS: Erythrocyte Sedimentation Rate 22 mm/hr (0-20)
[2025-01-02] MEDS: SODIUM CHLORIDE 3% 15ML NEB 3 ML IH (09:56)
--- NOTE | 2025-01-02 11:38 | PC.NURSE ---
pt taken down to pre op for broncoscopy. consent is to be signed in preop and all questions answered by pulmonology.
--- NOTE | 2025-01-02 12:00 | EXP.ANES.CKL ---
[facility] Disclaimer: The information contained in this section may have been updated after the patient was seen, as this information can be updated by other users. Surgical History (Updated 01/01/25 @ 20:29 by Ailyn Barraza RN) History of appendectomy Social History (Updated 01/01/25 @ 20:31 by Ailyn Barraza RN) Smoking Status: Former smoker how long ago did patient quit smoking: Patient now vapes last time vaping was 2 weeks ago second hand exposure: No alcohol intake: never substance use type: denies use current occupational status: employed Travel in the last 8 weeks: None Have you lived/traveled outside [place] in past 30 days?: No Contact w/someone who lives/traveled outside US past 30 days?: No Exposure to someone with infectious disease in past 14 days?: No Do you have a fever (greater than 100.4 F or 38 C)?: No Have you tested positive for COVID-19: No Exposed to someone with COVID-19 in past 14 days?: No Do you have a sore throat?: No Do you have a cough?: No Do you have a headache?: No Do you have any weakness?: No Are you experiencing any nausea/vomitting?: No Do you have any diarrhea?: No Are you experiencing any unusual bleeding?: No Do you have any muscle aches/pain?: No Do you have any abdominal pain?: No Are you experiencing loss of taste or smell?: No [facility] Anesthesia Checklist Patient Identification Patient Identification: Arm Band Structural Data Admitted From: Home Planned Operative Procedure/s: Bronchoscopy with Biopsy + EBUS Consent for Planned Operative Procedure(s) Verified: Yes Verified Documents: Surgical Consent and History and Physical NPO Status Verified Time NPO: 00:00 Additional verifications Anesthesia Reactions: No Airway Assessment Mallampati Score:: Class II C-Spine Mobility Assessed: Yes TMJ Mobility Assessed: Yes Dentition: Good Dentition Neurological Assessment Level of Consciousness: Awake, Alert and Appropriate Anesthesia Plan Anesthesia Risk discussed: Yes Anesthesia Plan: Verified ASA Class: II Anesthesia Type: General
--- NOTE | 2025-01-02 12:17 | P.CONS_ITS ---
History of Present Illness History of present illness: Ms. Nolasco is a 24-year-old female no significant smoking history presented level worsening chest pain and respiratory distress and CT showed concerning left lower lobe atelectasis possible endobronchial mass and lymphadenopathy and pulmonary was consulted for further evaluation and management. No baseline respiratory complaints but not using any inhalers or oxygen at baseline Symptoms started around 2 weeks ago predominantly with chest pain and shortness of breath treated with antibiotics Amoxilcillin and doxycycline with no significant improvement in her symptoms, subsequently tested positive for influenza pneumonia got treated with no improvement in her symptoms. [facility] Disclaimer: The information contained in this section may have been updated after the patient was seen, as this information can be updated by other users. Medical History (Updated 01/02/25 @ 12:17 by Rama Hendrix MD) Hilar lymphadenopathy Surgical History (Updated 01/01/25 @ 20:29 by Ailyn Barraza RN) History of appendectomy Social History (Updated 01/01/25 @ 20:31 by Ailyn Barraza RN) Smoking Status: Former smoker how long ago did patient quit smoking: Patient now vapes last time vaping was 2 weeks ago second hand exposure: No alcohol intake: never substance use type: denies use current occupational status: employed Travel in the last 8 weeks: None Have you lived/traveled outside US in past 30 days?: No Contact w/someone who lives/traveled outside [place] past 30 days?: No Exposure to someone with infectious disease in past 14 days?: No Do you have a fever (greater than 100.4 F or 38 C)?: No Have you tested positive for COVID-19: No Exposed to someone with COVID-19 in past 14 days?: No Do you have a sore throat?: No Do you have a cough?: No Do you have a headache?: No Do you have any weakness?: No Are you experiencing any nausea/vomitting?: No Do you have any diarrhea?: No Are you experiencing any unusual bleeding?: No Do you have any muscle aches/pain?: No Do you have any abdominal pain?: No Are you experiencing loss of taste or smell?: No Review of Systems Constitutional Constitutional: Reports anorexia, Reports body ache(s), Reports fatigue and Denies snoring Eyes Eyes: Denies eye discharge, Denies dry eyes, Denies irritation and Denies itchy eyes ENT Ears, Nose, Mouth, and Throat: Denies epistaxis, Denies facial pain, Denies lip swelling and Denies throat swelling *Cardiovascular Cardiovascular: Reports dyspnea and Reports dyspnea on exertion *Respiratory Respiratory: Denies chest congestion, Reports cough, Reports dyspnea, Reports dyspnea on exertion, Reports excessive phlegm production, Denies hemoptysis, Denies snoring, Denies stridor and Reports wheezing *Gastrointestinal Gastrointestinal: Denies abdominal pain, Denies belching and Denies cramping *Musculoskeletal Musculoskeletal: Reports back pain, Reports myalgias and Reports other (No small joint swelling or Pain) *Neurologic Neurologic: Reports as per HPI Psychiatric Psychiatric: Denies homicidal ideation and Denies suicidal ideation Endocrine Endocrine: Reports fatigue and Denies heat intolerance Hematologic/Lymphatic Hematologic/Lymphatic: Denies easy bleeding and Denies lymphadenopathy Allergic/Immunologic Allergic/Immunologic: Denies itchy eyes, Denies lip swelling, Denies throat swelling and Reports wheezing Pulmonology Exam Inpatient Vital signs and Labs for Last 24 Hours: Temp Pulse Resp BP Pulse Ox O2 Del Method 98 F 80 18 98/60 L 96 Room Air 01/02/25 08:00 01/02/25 09:57 01/02/25 09:57 01/02/25 08:00 01/02/25 08:00 01/02/25 11:00 Laboratory Results - last 24 hr 01/01/25 16:25: WBC 8.9, RBC 4.97, Hgb 14.0, Hct 41.9, MCV 84.3, MCH 28.2, MCHC 33.4, RDW 12.1, Plt Count 285, MPV 9.4, Neut % (Auto) 68.2, Lymph % (Auto) 23.9, [place] % (Auto) 6.3, Eos % (Auto) 0.8, Baso % (Auto) 0.5, Neut # (Auto) 6.0, Lymph # (Auto) 2.1, [place] # (Auto) 0.6, Eos # (Auto) 0.1, Baso # (Auto) 0.0, Sodium 134 L, Potassium 3.6, Chloride 103, Carbon Dioxide 26, Anion Gap 8.6, BUN 8, Creatinine 0.90, Estimated Creat Clear 121, Estimated GFR 77, Est GFR ( Amer) 93, Glucose 122 H, Calcium 9.5, Magnesium 1.7, Total Bilirubin 0.9, AST 33, ALT 34, Alkaline Phosphatase 78, Troponin I < 0.01, NT-Pro-B Natriuret Pep < 20.0, Total Protein 7.7, Albumin 4.6, Globulin 3.1, Albumin/Globulin Ratio 1.5 01/01/25 16:42: Urine Color Yellow, Urine Appearance Clear, Urine pH 6.5, Ur Specific [place] 1.020, Urine Protein Negative, Urine Glucose (UA) Negative, Urine Ketones Negative, Urine Blood Negative, Urine Nitrate Negative, Urine Bilirubin Negative, Urine Urobilinogen 0.2, Ur Leukocyte Esterase Negative, Urine RBC Occasional, Urine WBC Occasional, Ur Squamous Epith Cells 3-5, Urine Bacteria Trace, Urine HCG, Qual Negative 01/01/25 18:52: SARS-CoV-2 (PCR) Not detected, Influenza A Untype (PCR) Not detected, Influenza Type B (PCR) Not detected 01/01/25 19:20: Troponin I < 0.01 01/01/25 22:34: Troponin I < 0.01 01/02/25 06:30: WBC 7.3, RBC 4.49, Hgb 12.6, Hct 37.8, MCV 84.2, MCH 28.1, MCHC 33.3, RDW 12.3, Plt Count 233, MPV 9.2, Neut % (Auto) 54.4, Lymph % (Auto) 32.3, [place] % (Auto) 9.7 H, Eos % (Auto) 3.0, Baso % (Auto) 0.3, Neut # (Auto) 4.0, Lymph # (Auto) 2.4, [place] # (Auto) 0.7, Eos # (Auto) 0.2, Baso # (Auto) 0.0, ESR 22 H, Sodium 136, Potassium 3.8, Chloride 106, Carbon Dioxide 27, Anion Gap 6.8, BUN 7, Creatinine 0.90, Estimated Creat Clear 121, Estimated GFR 77, Est GFR ( Amer) 93, Glucose 107 H, Calcium 8.4, Magnesium 3.0 H D, Total Bilirubin 1.3, AST 27, ALT 27, Alkaline Phosphatase 61, Lactate Dehydrogenase 177 L, C-Reactive Protein 44.6 H, Total Protein 6.6, Albumin 3.9 D, Globulin 2.7, Albumin/Globulin Ratio 1.4 I & O for Labs for Last 24 Hours: Intake & Output 12/30/24 12/31/24 01/01/25 01/02/25 23:59 23:59 23:59 23:59 Intake Total 150 / 150 Output Total 0 / 0 Balance 150 / 150 Weight 174 lb 14.4 oz 174 lb 14.4 oz Constitutional: Present moderate distress Head: Present normocephalic and atraumatic ENT: Present normal exam, normal oropharynx and mucous membranes moist Neck: Present normal inspection and full ROM Respiratory: Present diminished air movement and able to speak in complete sentences; Absent respiratory distress, wheezes or crackles Cardiac: Present S1/S2, Tachycardia and radial pulses present GI: Present soft and distention; Absent tenderness or guarding Rectal (female): Present deferred (female): Present deferred Skin: Present intact; Absent cyanosis or jaundice Neuro: Present alert, awake and oriented x 3 Extremities: Present normal inspection; Absent clubbing or cyanosis Psychiatric: Present normal affect and cooperative Meds Home Medications and Allergies Home Medications ?Medication ?Instructions ?Recorded ?Confirmed ?Type albuterol sulfate 90 mcg/actuation 1 puff inhalation Q4HP PRN Chest 01/01/25 01/02/25 History aerosol inhaler Congestion bupropion HCl 300 mg 24 hr tablet, 300 mg PO DAILY 01/01/25 01/01/25 History extended release cetirizine 10 mg tablet 10 mg PO DAILY 01/01/25 01/01/25 History spironolactone 50 mg tablet 50 mg PO BID 01/01/25 01/01/25 History tretinoin 0.025 % topical cream 1 applic topical HS 01/01/25 01/01/25 History New Prescriptions to Start Prescriptions: Allergies Allergy/AdvReac Type Severity Reaction Status Date / Time No Known Allergies Allergy Verified 01/01/25 16:49 Results Laboratory Findings 01/02/25 06:30 01/02/25 06:30 Abnormal lab findings: Abnormal Labs 01/01/25 01/02/25 16:25 06:30 [place] % (Auto) 9.7 H ESR 22 H Sodium 134 L Glucose 122 H 107 H Magnesium 3.0 H D Lactate Dehydrogenase 177 L C-Reactive Protein 44.6 H Assessment and Plan *Assessment and plan (1) Mass of left lung: Status: Acute Category: Medical Code(s): R91.8 - Other nonspecific abnormal finding of lung field (2) Pneumonia involving left lung: Status: Acute Qualifiers: Pneumonia type: due to unspecified organism Lung location: lower lobe of lung Qualified Code(s): J18.9 - Pneumonia, unspecified organism Category: Medical Code(s): J18.9 - Pneumonia, unspecified organism (3) Atelectasis of left lung: Status: Acute Category: Medical Code(s): J98.11 - Atelectasis (4) Hilar lymphadenopathy: Status: Acute Category: Medical Code(s): R59.0 - Localized enlarged lymph nodes Plan Ms. Nolasco is a 24-year-old female no significant smoking history presented level worsening chest pain and respiratory distress and CT showed concerning left lower lobe atelectasis possible endobronchial mass and lymphadenopathy and pulmonary was consulted for further evaluation and management. No baseline respiratory complaints but not using any inhalers or oxygen at baseline Symptoms started around 2 weeks ago predominantly with chest pain and shortness of breath treated with antibiotics Amoxilcillin and doxycycline with no significant improvement in her symptoms, subsequently tested positive for influenza pneumonia got treated with no improvement in her symptoms. Denies any productive phlegm. Denies any subjective fevers. No known sick contacts.. Denies any known aspiration events Receiving Pap smears on a regular basis with no abnormality. Lumpectomy left breast around 2019 reported to be benign. Not receiving any mammograms. Family history of breast cancer in her grandmother at 44 years old. Her mother getting mammograms with no abnormality. No genetic testing performed as per the patient. CTA PE protocol no evidence of pulmonary embolism. Left lower lobe atelectasis/airspace disease with concerning left lower lobe endobronchial occlusion with possible endobronchial lesion/hilar mass compression. Left hilar lymphadenopathy also noted. On examination no severe respiratory distress. On room air. Decreased breath sounds left lower lung enriquez. Lungs otherwise clear. On this visit patient denies fevers, denies chills, denies night sweats, denies hemoptysis, denies weight loss and denies loss of appetite. Plan: Schedule for bronchoscopy airway examination transbronchial/endobronchial lung biopsy on EBUS FNA Continue Zosyn pending culture results
--- NOTE | 2025-01-02 14:08 | XR_ITS ---
FINAL REPORT CLINICAL HISTORY: post op bronch with biopsy COMPARISON: None FINDINGS: A portable view of the chest is obtained. Cardiac and mediastinal silhouettes are normal. Left basilar opacity is likely left lower lobe collapse. There may be a small left pleural effusion. There is no pneumothorax. IMPRESSION: Left lower lobe opacity, likely collapse. Probable small left pleural effusion. Reviewed, Interpreted and Dictated by Ginger Holguin MD Transcribed by Jocelyn Sam Authenticated and [facility]
--- NOTE | 2025-01-02 14:51 | EXP.ANES.I ---
[facility] Anesthesia Record Part I Anesthesia Record I Intake, IV Amount: 800 Hydration: Adequate Estimated blood loss (mL): 1 Urine output (mL): 0 Blood Products used (#): none Blood Pressure: 130/80 SaO2: 92 Pulse Rate: 109 Airway Patency: Patent Respiratory Rate: 16 Temperature: 97.8 F Patient is:: Drowsy and Stable Stable to PACU at:: 13:50
--- NOTE | 2025-01-02 15:14 | EXP.ANES.II ---
[facility] Anesthesia Record Part II Anesthesia Record Part II Discharge Time: 14:20 Destination: Surgical Day Care (OP Surgery) PACU nurse assessment reviewed?: Yes Patient Condition:: Good Anesthesia Complications:: None Swallowing reflex intact?: Yes Airway Patency: Patent Cyanosis?: No Blood Pressure: 130/95 SaO2: 92 Respiratory Rate: 16 Pulse Rate: 97 Temperature: 97.8 F Mental Status: Alert & Oriented Pain level:: 0 Nausea and/or vomitting:: None Intake, IV Amount: 0 Hydration: Adequate
[2025-01-02] MEDS: ACETAMINOPHEN 325MG TAB 650 MG PO (15:30)
[2025-01-02] MEDS: PHENOL THROAT SPRAY 177 ML BOTTLE MM (15:30)
--- NOTE | 2025-01-02 15:36 | P.PCN_ITS ---
Procedure: Date: 01/02/25 Patient Date of :: 2000 Procedure Performed:: Bronchoscopy airway examination, transbronchial and endobronchial lung biopsy, endobronchial ultrasound-guided fine-needle aspiration of the lymph node Indications:: Lymphadenopathy Atelectasis Performing Provider:: Rama Hendrix MD Referring Provider:: Dr. Burns Sedation:: General anesthesia Procedure:: Bronchoscopy airway examination, transbronchial and endobronchial lung biopsy, endobronchial ultrasound-guided fine-needle aspiration of the lymph node: A clean EBUS bronchoscopy was advanced the ET tube and lymph node surveillance was performed. Patient noted to have lymphadenopathy at station 10L, station 7 and station 4R. A total of 5 passes were done at each lymph node station. Patient also noted to have lymphadenopathy at station 4L however subcentimeter lymph nodes no FNA samples were performed at that station. Lymph node samples from 10L, 7 and 4R was sent in CytoLyt for cytopathologic examination. Lymph node samples were also sent in [place] medium for flow cytometry evaluation. EBUS bronchoscopy was retracted and A clean therapeutic bronchoscopy was advanced through the ET tube and airways were examined up to subsegmental bronchi. Airways on right lung Airways appeared grossly normal, no evidence of mucoid secretions, mucous plugging active bleeding/old blood clots noted. Left lung bronchi appeared grossly abnormal. Greater than 50% decline in the lumen of the left upper lobe and lingula are bronchi noted likely appeared to be from extrinsic compression. No endobronchial lesions noted in these airways. Left lower lobe bronchi is completely occluded with endobronchial lesion. Bronchoscopy was not able to pass beyond the occlusion. A total of 5 endobronchial biopsies were performed at the left lower lobe endobronchial lesion and was sent in formalin for cytopathologic examination. No bronchoalveolar lavage was performed. Biopsy forceps were stable to be passed beyond the left lower lobe endobronchial lesion. Transbronchial biopsy was performed in the LEFT UPPER LOBE with a total of 7 biopsies performed, 5 biopsy specimens were sent in formalin for cyto pathologic examination. The other 2 biopsy samples, were sent one each in two separate normal saline specimen cups for bacterial fungal and AFB stain cultures. Patient tolerated the procedure with no immediate acute complications. We will follow the patient in pulmonary clinic in 7 to 10 days. Findings:: Please see the procedure note Recommendations:: No acute immediate complications Postoperative bronchoscopy instructions. Wean antibiotics to Augmentin to complete a total of 7-day course upon discharge. Complications:: No acute immediate complication Estimated blood obtained (mL): 5
--- NOTE | 2025-01-02 17:24 | PC.NURSE ---
a&ox4. resting in bed with mom and significant other at bedside. [facility] biopsies sent. 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 complained of throat pain and a headache. pt given throat spray and tylenol with resolution of symptoms. post op vitals being taken. vss. pt using incentive spirometer as educated. no needs at this time. call light within reach.
--- NOTE | 2025-01-02 17:31 | P.DS_ITS ---
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 Noting that she does vape but her last time she vape was approximately 2 weeks ago. She began to feel ill ended up being tested positive for flu. Also placed on 2 different antibiotics with no improvement. Patient also noted placed on steroids with no effect. Patient now has a cough that she says is dry does not get anything up. Noting that if she takes a deep breath it causes left lung pain. But short shallow breaths do not hurt. Was seen at an outside facility for possible collapsed lung on chest x-ray. She has come to the emergency room. Where CT scan was done. Also please note that the patient was diagnosed with influenza A 1 week ago. Present room air saturations 94%. Mild tachycardia. The CT scan was done here that showed a masslike lesion left lower base. With complete atelectasis of the left lower lung medial aspect. Daytime provider Dr. Katz was also informed to the patient has placed orders including pulmonary consult. Patient has been told that she will be n.p.o. after midnight. For possible bronchoscopy or other procedure. Reviewed family history in grandparents on both sides there has been cancer and also a great uncle but the people were much older into their 60s or 70s before these cancers develop. There is no history of any genetic testing checking for BRCA1 or BRCA2. Patient did note she had a lumpectomy done of one of her breast that was benign. And has not been in the hospital overnight since she was a young child. Hospital Course Hospital Course Hospital Course: Kushal Nolasco is a 24-year-old female who presented with shortness of breath and was admitted for left hilar mass with obstructive atelectasis and community- acquired pneumonia. #Shortness of breath #Community-acquired pneumonia #Left hilar mass #Left lower lobe obstructive atelectasis ? CTA chest revealed above findings. No hypoxia. ? Former smoker, current vaper. No unique environmental exposure, other than partner stating there may be some mold in their home. ? Pulmonology consulted, s/p bronchoscopy with biopsies on 01/02/2025. ? Patient started on Zosyn, transition to oral Augmentin for 4 more days. ? No signs of sepsis. Medically stable for discharge. Will follow-up with pulmonology within 1 week to follow-up on biopsies. #Current vaper ? Extensively counseled, encouraged cessation. Patient states she is motivated to discontinue. #Anxiety/depression ? Continue home Wellbutrin. #Hypertension ? Continue home spironolactone. Total time spent on discharge: 35 minutes on chart review, counseling, documentation, and direct care with patient. Exam Data for Last 24 hours Vital signs and Labs for Last 24 Hours: Temp Pulse Resp BP Pulse Ox O2 Del Method O2 Flow Rate 98.0 F 87 18 123/84 97 Room Air 3 01/02/25 16:45 01/02/25 16:45 01/02/25 16:45 01/02/25 16:45 01/02/25 16:45 01/02/25 17:00 01/02/25 14:20 Laboratory Results - last 24 hr 01/01/25 16:25: WBC 8.9, RBC 4.97, Hgb 14.0, Hct 41.9, MCV 84.3, MCH 28.2, MCHC 33.4, RDW 12.1, Plt Count 285, MPV 9.4, Neut % (Auto) 68.2, Lymph % (Auto) 23.9, [place] % (Auto) 6.3, Eos % (Auto) 0.8, Baso % (Auto) 0.5, Neut # (Auto) 6.0, Lymph # (Auto) 2.1, [place] # (Auto) 0.6, Eos # (Auto) 0.1, Baso # (Auto) 0.0, Sodium 134 L, Potassium 3.6, Chloride 103, Carbon Dioxide 26, Anion Gap 8.6, BUN 8, Creatinine 0.90, Estimated Creat Clear 121, Estimated GFR 77, Est GFR ( Amer) 93, Glucose 122 H, Calcium 9.5, Magnesium 1.7, Total Bilirubin 0.9, AST 33, ALT 34, Alkaline Phosphatase 78, Troponin I < 0.01, NT-Pro-B Natriuret Pep < 20.0, Total Protein 7.7, Albumin 4.6, Globulin 3.1, Albumin/Globulin Ratio 1.5 01/01/25 16:42: Urine RBC Occasional, Urine WBC Occasional, Ur Squamous Epith Cells 3-5, Urine Bacteria Trace 01/01/25 18:52: SARS-CoV-2 (PCR) Not detected, Influenza A Untype (PCR) Not detected, Influenza Type B (PCR) Not detected 01/01/25 19:20: Troponin I < 0.01 01/01/25 22:34: Troponin I < 0.01 01/02/25 06:30: WBC 7.3, RBC 4.49, Hgb 12.6, Hct 37.8, MCV 84.2, MCH 28.1, MCHC 33.3, RDW 12.3, Plt Count 233, MPV 9.2, Neut % (Auto) 54.4, Lymph % (Auto) 32.3, [place] % (Auto) 9.7 H, Eos % (Auto) 3.0, Baso % (Auto) 0.3, Neut # (Auto) 4.0, Lymph # (Auto) 2.4, [place] # (Auto) 0.7, Eos # (Auto) 0.2, Baso # (Auto) 0.0, ESR 22 H, Sodium 136, Potassium 3.8, Chloride 106, Carbon Dioxide 27, Anion Gap 6.8, BUN 7, Creatinine 0.90, Estimated Creat Clear 121, Estimated GFR 77, Est GFR ( Amer) 93, Glucose 107 H, Calcium 8.4, Magnesium 3.0 H D, Total Bilirubin 1.3, AST 27, ALT 27, Alkaline Phosphatase 61, Lactate Dehydrogenase 177 L, C-Reactive Protein 44.6 H, Total Protein 6.6, Albumin 3.9 D, Globulin 2.7, Albumin/Globulin Ratio 1.4 I & O for Last 24 hours: Intake & Output 12/30/24 12/31/24 01/01/25 01/02/25 23:59 23:59 23:59 23:59 Intake Total 990 / 990 Output Total 0 / 0 Balance 990 / 990 Weight 79.333 kg 79.333 kg Microbiology Reports for the Last 24 Hours: Microbiology 01/02/25 10:10 Sputum - Expectorated Sputum Gram Stain - Final Constitutional Constitutional: no acute distress and obese *Routine HEENT Exam Head: Present normocephalic Eye: Present EOMI and PERRL ENT: Present mucous membranes moist *Routine Neck Exam Neck: Present supple; Absent lymphadenopathy *Routine Respiratory Exam Respiratory: Present CTA bilaterally *Routine Cardiovascular Exam Cardiovascular: Present RRR *Routine Abdominal Exam Abdominal: Present soft and normoactive bowel sounds; Absent tenderness *Routine Extremities Exam Extremities: Absent cyanosis, clubbing or edema *Routine Skin Exam Skin: Present warm; Absent rash *Routine Neurological Exam Neurological: Present alert and oriented X3 Results Data Completed and Pending Labs on day of discharge: Labs from last 24 hours 01/02/25 01/01/25 01/01/25 06:30 22:34 19:20 WBC 7.3 RBC 4.49 Hgb 12.6 Hct 37.8 MCV 84.2 MCH 28.1 MCHC 33.3 RDW 12.3 Plt Count 233 MPV 9.2 Neut % (Auto) 54.4 Lymph % (Auto) 32.3 [place] % (Auto) 9.7 H Eos % (Auto) 3.0 Baso % (Auto) 0.3 Neut # (Auto) 4.0 Lymph # (Auto) 2.4 [place] # (Auto) 0.7 Eos # (Auto) 0.2 Baso # (Auto) 0.0 ESR 22 H Sodium 136 Potassium 3.8 Chloride 106 Carbon Dioxide 27 Anion Gap 6.8 BUN 7 Creatinine 0.90 Estimated Creat Clear 121 Estimated GFR 77 Est GFR ( Amer) 93 Glucose 107 H Calcium 8.4 Magnesium 3.0 H D Total Bilirubin 1.3 AST 27 ALT 27 Alkaline Phosphatase 61 Lactate Dehydrogenase 177 L Troponin I < 0.01 < 0.01 C-Reactive Protein 44.6 H NT-Pro-B Natriuret Pep Total Protein 6.6 Albumin 3.9 D Globulin 2.7 Albumin/Globulin Ratio 1.4 Urine RBC Urine WBC Ur Squamous Epith Cells Urine Bacteria SARS-CoV-2 (PCR) Influenza A Untype (PCR) Influenza Type B (PCR) 01/01/25 01/01/25 01/01/25 18:52 16:42 16:25 WBC 8.9 RBC 4.97 Hgb 14.0 Hct 41.9 MCV 84.3 MCH 28.2 MCHC 33.4 RDW 12.1 Plt Count 285 MPV 9.4 Neut % (Auto) 68.2 Lymph % (Auto) 23.9 [place] % (Auto) 6.3 Eos % (Auto) 0.8 Baso % (Auto) 0.5 Neut # (Auto) 6.0 Lymph # (Auto) 2.1 [place] # (Auto) 0.6 Eos # (Auto) 0.1 Baso # (Auto) 0.0 ESR Sodium 134 L Potassium 3.6 Chloride 103 Carbon Dioxide 26 Anion Gap 8.6 BUN 8 Creatinine 0.90 Estimated Creat Clear 121 Estimated GFR 77 Est GFR ( Amer) 93 Glucose 122 H Calcium 9.5 Magnesium 1.7 Total Bilirubin 0.9 AST 33 ALT 34 Alkaline Phosphatase 78 Lactate Dehydrogenase Troponin I < 0.01 C-Reactive Protein NT-Pro-B Natriuret Pep < 20.0 Total Protein 7.7 Albumin 4.6 Globulin 3.1 Albumin/Globulin Ratio 1.5 Urine RBC Occasional Urine WBC Occasional Ur Squamous Epith Cells 3-5 Urine Bacteria Trace SARS-CoV-2 (PCR) Not detected Influenza A Untype (PCR) Not detected Influenza Type B (PCR) Not detected DS: Diagnosis Discharge Diagnosis (1) Mass of left lung: Status: Acute Code(s): R91.8 - Other nonspecific abnormal finding of lung field (2) Pneumonia involving left lung: Status: Acute Code(s): J18.9 - Pneumonia, unspecified organism Qualifiers: Lung location: lower lobe of lung Pneumonia type: due to unspecified organism Qualified Code(s): J18.9 - Pneumonia, unspecified organism (3) Atelectasis of left lung: Status: Acute Code(s): J98.11 - Atelectasis (4) Hilar lymphadenopathy: Status: Acute Code(s): R59.0 - Localized enlarged lymph nodes Meds Home Medications and Allergies Home Medications ?Medication ?Instructions ?Recorded ?Confirmed ?Type albuterol sulfate 90 mcg/actuation 1 puff inhalation Q4HP PRN Chest 01/01/25 01/05/25 History aerosol inhaler Congestion bupropion HCl 300 mg 24 hr tablet, 300 mg PO DAILY 01/01/25 01/05/25 History extended release cetirizine 10 mg tablet 10 mg PO DAILY 01/01/25 01/05/25 History spironolactone 50 mg tablet 50 mg PO BID 01/01/25 01/05/25 History tretinoin 0.025 % topical cream 1 applic topical HS 01/01/25 01/05/25 History amoxicillin 500 mg-potassium 1 tab PO TID 9 days #27 tabs 01/05/25 01/05/25 Rx clavulanate 125 mg tablet (Augmentin) New Prescriptions to Start Prescriptions: Allergies Allergy/AdvReac Type Severity Reaction Status Date / Time No Known Allergies Allergy Verified 01/05/25 10:29 Discharge Plan Disposition Patient Disposition: Home, Self-Care Condition: Fair Follow up Plan Follow up with: Rama Hendrix MD [Physician] - 01/05/25 (please call office for appointment) Prescriptions/Medication Reconciliation: Continued tretinoin 0.025 % cream 1 applic TOPICAL HS Patient Comments: APPLY A PEA SIZE AMOUNT TO FACE AT BEDTIME. FOLLOW WITH MOISTURIZER spironolactone 50 mg tablet 50 mg PO BID Patient Comments: TAKE 1 TABLET BY MOUTH TWICE DAILY albuterol sulfate 90 mcg/actuation HFA aerosol inhaler 1 puff INHALATION Q4HP PRN (Reason: Chest Congestion) Patient Comments: INHALE 1 PUFF BY MOUTH EVERY 4 HOURS NEEDED FOR WHEEZING OR SHORTNESS OF BREATH cetirizine 10 mg tablet 10 mg PO DAILY Patient Comments: TAKE 1 TABLET BY MOUTH ONCE DAILY bupropion HCl 300 mg tablet extended release 24 hr 300 mg PO DAILY Patient Comments: TAKE 1 TABLET BY MOUTH ONCE DAILY No Action amoxicillin-pot clavulanate [Augmentin] 500-125 mg tablet 1 tab PO TID 9 Days Qty: 27 0RF Rx Instructions: To complete a total of 14-day course Problem Reconciliation Problems Reviewed?: Yes Patient Discharge Instructions Stand Alone Forms: [facility] Work Release Patient Instructions: DI for Pneumonia -- Adult, DI for Pulmonary Nodule Print Language: Italian Providers Primary Care Provider: Marie Wells Admit Provider: Sky Katz Attending Provider: Sky Katz
--- NOTE | 2025-01-03 09:55 | SW/DCPLANNER ---
Spoke with patient on the phone. Patient stated that she is doing well. Patient stated that she woke up this morning with a cough and that she is spitting up some blood and dont know if its caused by being intubated. I asked the nurses and they said it could be normal and that if it continues to get worse to go to the er or see her primary care provider. Patient stated that she was able to get her new medicine and that clinic pharmacy was able to bring it up to her before discharged. Patient stated that she has no concerns or questions at this time. Edgard Klein
[2025-01-12 15:49] LABS: Histo Gal Rfx 0.43 ng/mL
== END 2025-01-02 18:15 | disposition home or self-care (01) ==
LOC: ER 18:37 → 2ND 19:33
PROVIDERS: Internal Medicine Pulmonary Disease; Physician Assistant; Admitting Provider Internal Medicine Adolescent Medicine; Emergency Provider Emergency Medicine; PCP Physician Assistant; Visit Provider Internal Medicine Adolescent Medicine
PROC: BB4BZZZ Ultrasonography of Pleura (ICD-10-PCS; CPT 31625; principal; 2025-01-02 12:00)
DX: J98.11 Atelectasis (principal); J18.8 Other pneumonia, unspecified organism; R91.8 Other nonspecific abnormal finding of lung field; R59.0 Localized enlarged lymph nodes; G93.31 Postviral fatigue syndrome; I10 Essential (primary) hypertension; F41.9 Anxiety disorder, unspecified; F32.A Depression, unspecified; R00.0 Tachycardia, unspecified; F17.290 Nicotine dependence, other tobacco product, uncomplicated; E78.5 Hyperlipidemia, unspecified; R63.0 Anorexia; E66.9 Obesity, unspecified; Z79.899 Other long term (current) drug therapy; Z80.9 Family history of malignant neoplasm, unspecified; Z68.33 Body mass index [BMI] 33.0-33.9, adult; Z80.3 Family history of malignant neoplasm of breast; Z71.6 Tobacco abuse counseling
CPT/HCPCS: 31625; 31628; 31653; 36415; 71045; 71275; 76000; 80053; 81001; 81025; 83615; 83735; 83880; 84484; 85025; 85651; 86140; 87040; 87070; 87102; 87116; 87186; 87205; 87206; 87385; 87636; 93005; 99285; G0378; J1100; J2250; J2405; J2543; J3010; J3475; Q9967

== ENCOUNTER 2025-01-06 13:11 | Outpatient (CLI) | payer BC, SELFPAY | END 2025-01-06 23:59 | disposition home or self-care (01) | LOC: LAB 13:12 | PROVIDERS: PCP Physician Assistant; Visit Provider Internal Medicine Pulmonary Disease | DX: J18.9 Pneumonia, unspecified organism (principal) ==

== ENCOUNTER 2025-03-07 08:37 | Outpatient (CLI) | payer BC, SELFPAY ==
--- OUTSIDE RECORDS SUMMARY | 2025-03-07 08:39 | XMS_ITS | Continuity of Care Document ---
Author Organization [facility] NEW Address [address] [place] [address] Care Team Providers Care Director Hematology Name Role Phone SHAYLEE WELLS Primary Care Provider Assessment No assessment recorded. Plan of Treatment Reminders Order Date Submit Date Provider Last Modified By Organization Details Last Modified Time Details Appointments Physical Exam 30 min 2024 02:00P KARLIE Haley Not available Not available Not available Lab None recorded. Referral None recorded. Procedures None recorded. Surgeries None recorded. Imaging None recorded. Medication Orders mupirocin 2 % topical ointment 2024 025 [facility], [address], [place], [address], 02/14/2025 12:27:40 hydrocort isone 1 % topical cream 2024 025 [facility], [address], [place], [address], 02/14/2025 12:27:41 cephalexi n 500 mg capsule 2024 025 [facility], [address], [place], [address], 02/14/2025 12:27:43 Patient TargetsNo targets recorded. Patient Instructions Encounter Date Encounter Id Patient Instructions Last Modified By Organization Details Last Modified Time 02/14/2025 [id number] Advised patient to return to clinic in 2 days if no improvement or if worsening of symptoms. Advised patient to go to the ER if fever above 103, chest pains, shortness of air, lethargy or confusion, signs of dehydration, unilateral weakness, slurred speech, severe headache, etc. Follow-up with Provider/PCP in 2-3 days. Not available 02/16/2025 18:37:08 Reason for Referral None Reported. Problems Name Problem SNOMED Code Status Onset Date Resolution Date Notes Provider Name and Address Organization Details Recorded Time Menorrhagia 345251795 Active [address], [address], [place], [address], [place] [place] & [place] 5 11:18:12 Hyperglycem ia 45423704 Active [address], [address], [place], [address], [place] & [place] 5 11:18:14 Anxiety 10717024 Active [address], [address], [place], [address], [place] 3 11:51:58 Fibroadenom a of left breast 1817974961897 [address], [address], [place], [address], [place] & [place] 3 11:51:58 Otitis externa of left ear 3318251050704 [address], [address], [place], [address], [place] & [place] 3 11:51:58 Mass of left breast 6674670494863 [address], [address], [place], [address], [place] 3 11:51:58 Acute bacterial pharyngitis 305200034 Active Shaylee Wells, PA [address], [address], [place], [address], [place] [facility] [place] [facility] & [place] 3 11:51:58 Mixed hyperlipide tana [id number] KARLIE Boyd [facility] [address], [address], [place], [address], [place] [facility] & [place] 3 11:51:58 Right sided abdominal pain [id number] KARLIE Boyd [facility] [address], [address], [place], [address], [place] [facility] & [place] 3 11:51:58 Patient encounter status [id number] KARLIE Boyd [address] [place] [address], [address], [place], [address], [place] [facility] & [place] 3 11:51:58 Pharyngitis [id number] KARLIE Boyd [facility], [address], [place], [address], [place] [facility] & [place] 3 11:51:58 Environment al allergy [id number] KARLIE Boyd [address] [place] [address], [address], [place], [address], [place] [facility] & [place] 3 11:51:58 Obese class I [id number] 07 KARLIE Boyd [address] [place] [address], [address], [place], [address], [place] [facility] & [place] 3 11:51:58 Obese class II [id number] 05 Active KARLIE Smith [facility] [address], [address], [place], [address], [place] [facility] & [place] 3 11:51:58 Disturbance in mood [id number] KARLIE Boyd [facility] [address], [address], [place], [address], [place] [facility] & [place] 3 11:51:58 Impetigo 25822565 Active KARLIE Smith [address], [address], [place], [address], [place] [facility] & [place] 3 11:51:58 Weight gain 2591877 Active KARLIE Smith [address], [address], [place], [address], [place] 3 11:51:58 Disorder of lip 58612607 Active KARLIE Smith [address], [address], [place], [address], [place] 3 11:51:58 Dysfunction of bilateral eustachian tubes 8833017238674 100 Active 2023 LOGAN WALKER MD [address], [address], [place], [address], [place] [facility] & [place] 4 10:29:34 Problem Notes None recorded. Procedures Surgical History Date Name Laterality Status Provider Name and Address Organization Details Recorded Time 025 Venipuncture completed KARLIE Smith [address], [address], [place], [address], [place] [facility] & [place] 11/16/2024 11:18:30 024 Venipuncture completed KARLIE Smith [address], [address], [place], [address], [place] [facility] [facility] & [place] 05/24/2024 14:51:46 024 Venipuncture completed Sylvia Amin [place] - [facility] - [facility] & [place] 11/05/2023 10:52:25 023 Venipuncture completed KARLIE Smith [address], [address], [place], [address], [place] [facility] & [place] 05/27/2023 16:43:55 023 [facility] [place] [facility] [place] 11/25/2022 12:28:26 021 Date of Last Pap Smear completed KARLIE Smith [address], [address], [place], [address], [facility] - [facility] - [place] & [place] 11/25/2022 11:58:59 020 Breast Surgery completed KARLIE Smith [address], [address], [place], [address], [place] [facility] [place] & [place] 01/08/2023 12:25:01 019 lumpectomy of left breast completed KARLIE Smith [address], [address], [place], [address], [place] [facility] [place] & [place] 11/25/2022 11:57:07 006 Appendectomy completed KARLIE Smith [address], [address], [place], [address], [place] [facility] [place] & [place] 11/25/2022 11:56:50 extraction of wisdom tooth completed Sylvia Amin [place] - [facility] & [place] 05/24/2024 14:18:09 Imaging Results None recorded. Procedure Notes None recorded. Medical Equipment None Reported. Allergies No known drug allergies Medications Name Sig Start Date Stop Date Status Note LastModified by Organization Details LastModified Time cyclobenzap rine 10 mg tablet TAKE 1 TABLET BY MOUTH TWICE DAILY NEEDED FOR 10 DAYS 11/16 completed Not Available Not Available Not Available amoxicillin 500 mg capsule TAKE 1 CAPSULE BY MOUTH TWICE DAILY FOR 10 DAYS 11/25 completed Not Available Not Available Not Available cetirizine 10 mg tablet TAKE 1 TABLET BY MOUTH ONCE DAILY active Not Available Not Available No t Available atorvastati n 10 mg tablet TAKE 1 TABLET BY MOUTH ONCE DAILY active Not Available Not Available No t Available ibuprofen 800 mg tablet TAKE 1 TABLET BY MOUTH EVERY 6 TO 8 HOURS NEEDED 11/25 completed Not Available Not Available Not Available hydrocodone 5 mg-acetamin ophen 325 mg tablet TAKE 1 TABLET BY MOUTH EVERY 6 HOURS NEEDED FOR PAIN 05/24 completed Not Available Not Available Not Available tretinoin 0.025 % topical cream APPLY A PEA SIZE AMOUNT TO FACE AT BEDTIME. FOLLOW WITH MOISTUR[facility] ER active Not Available Not Available No t Available ondansetron HCl 4 mg tablet TAKE 1 TABLET BY MOUTH TWICE DAILY NEEDED FOR NAUSEA 11/25 completed Not Available Not Available Not Available clindamycin HCl 150 mg capsule TAKE 1 CAPSULE BY MOUTH TWICE DAILY FOR 5 DAYS 11/25 completed Not Available Not Available Not Available clindamycin 1 %-benzoyl peroxide 5 % topical gel APPLY A PEA SIZE AMOUNT TO FACE ONCE DAILY IN THE MORNING. FOLLOW WITH MOISTURIZ ER active Not Available Not Available No t Available ceftriaxone 1 gram solution for injection Take 1 g by injection route. 11/05 completed Not Available Not Available Not Available ofloxacin 0.3 % ear drops INSTILL 10 DROPS INTO AFFECTED EAR(S) TWICE DAILY 11/05 completed Not Available Not Available Not Available amoxicillin 875 mg tablet TAKE 1 TABLET BY MOUTH TWICE DAILY UNTIL ALL ARE TAKEN 05/24 completed Not Available Not Available Not Available hydrocortis one 1 % topical cream APPLY A THIN LAYER TO THE AFFECTED AREA(S) BY TOPICAL ROUTE 2 TIMES PER DAY active Not Available Not Available No t Available hydrocodone 7.5 mg-acetamin ophen 325 mg tablet TAKE 1 TABLET BY MOUTH EVERY 4 TO 6 HOURS NEEDED 11/25 completed Not Available Not Available Not Available cephalexin 500 mg capsule TAKE 1 CAPSULE BY MOUTH EVERY 8 HOURS FOR 7 DAYS active Not Available Not Available No t Available mupirocin 2 % topical ointment APPLY A SMALL AMOUNT TO AFFECTED AREA THREE TIMES DAILY active Not Available Not Available No t Available dexamethaso ne sodium phosphate 4 mg/mL injection solution Inject 8 mg every day by intramusc ular route for 1 day. 2024 active pt barrera well Not Available Not Available Not Available epinephrine 0.3 mg/0.3 mL injection, auto-inject or INJECT 0.3 ML (0.3 MG TOTAL) INTRAMUSC ULAR ONCE FOR ONE DOSE active Not Available Not Available No t Available ibuprofen 600 mg tablet TAKE 1 TABLET BY MOUTH EVERY 6 HOURS NEEDED FOR PAIN 05/24 completed Not Available Not Available Not Available methylpredn isolone 4 mg tablets in a dose pack TAKE BY MOUTH DIRECTED ON INSIDE OF PACKAGE active Not Available Not Available No t Available albuterol sulfate HFA 90 mcg/actuati on aerosol inhaler Inhale 1 puff every 4 hours by inhalatio n route as needed for 30 days, for wheezing/ SOA. 2024 active Not Available Not Available Not Avai lable ketorolac 60 mg/2 mL intramuscul ar solution Inject 2 mL every day by intramusc ular route for 1 day. 11/16 completed Not Available Not Available Not Available ondansetron 4 mg disintegrat ing tablet DISSOLVE 1 TABLET IN MOUTH EVERY 8 HOURS NEEDED FOR 3 DAYS 01/05 completed Not Available Not Available Not Available fluticasone propionate 50 mcg/actuati on nasal spray,suspe nsion USE 1 SPRAY(S) IN EACH NOSTRIL ONCE DAILY active Not Available Not Available No t Available doxycycline hyclate 100 mg tablet active Not Available Not Available No t Available loratadine 10 mg tablet Take 1 tablet by mouth once daily 11/16 completed Not Available Not Available Not Available naproxen 500 mg tablet TAKE 1 TABLET BY MOUTH TWICE DAILY WITH MEALS FOR BACK PAIN FOR 10 DAYS 11/16 completed Not Available Not Available Not Available spironolact one 50 mg tablet TAKE 1 TABLET BY MOUTH TWICE DAILY active Not Available Not Available No t Available amoxicillin 875 mg-potassiu m clavulanate 125 mg tablet active Not Available Not Available Not Available amoxicillin 500 mg-potassiu m clavulanate 125 mg tablet TAKE ONE TABLET BY MOUTH THREE TIMES DAILY FOR 9 DAYS -- FINISH ALL MEDICINE -- (TO COMPLETE A TOTAL OF 14 DAY COURSE) active Not Available Not Available No t Available bupropion HCl XL 300 mg 24 hr tablet, extended release TAKE 1 TABLET BY MOUTH ONCE DAILY active Not Available Not Available No t Available chlorhexidi ne gluconate 0.12 % mouthwash RINSE WITH 15ML FOR 30 SECONDS AND SPIT, USE TWICE DAILY FOR 5 DAYS 05/24 completed Not Available Not Available Not Available Mucinex 1,200 mg tablet, extended release Take 1 tablet twice a day by oral route for 14 days. 11/05 completed Not Available Not Available Not Available clindamycin 1 %-benzoyl peroxide 5 % topical gel with pump APPLY A PEA SIZE AMOUNT TO FACE ONCE DAILY IN THE MORNING. FOLLOW WITH MOISTUR[facility] ER 05/24 completed Not Available Not Available Not Available Vitals Date Recorded Body height Body mass index (BMI) Body weight Body temperature Oxygen saturation Oxygen saturation in Arterial blood by Pulse oximetry Heart rate Provider Name and Address Organization Details Last Updated DateTime 5 153.67 cm 36.1 kg/m2 45241.3 7 g 97.8 [degF] 98 % 98 % 80 /min Katia Lozano [facility] & [place] 5 11:53:11 Social History Question Answer Notes LastModified by Organizat ion Details LastModified Time Tobacco Smoking Status Never Smoker Sylvia devine, MARILU [facility] & [place] 11/25/2022 11:26:49 Do You Have An Advance Directive? No Information n ot available 11/25/2022 Do You Wear A Helmet When Biking? No [email or web address] Information not available 11/08/2023 Are You Blind Or Do You Have Difficulty Seeing? No [email or web address] Information n ot available 11/25/2022 Is Blood Transfusion Acceptable In An Emergency? Yes [email or web address] Information not available 11/08/2023 What Is Your Level Of Caffeine Consumption? Occasional [email or web address] Information not available 11/08/2023 In The 14 Days Before Symptom Onset, Have You Had Close Contact With A Laboratory-confirm ed COVID-19 While That Case Was Ill? No [email or web address] Information n ot available 11/08/2023 In The 14 Days Before Symptom Onset, Have You Had Close Contact With A Person Who Is Under Investigation For COVID-19 While That Person Was Ill? No [email or web address] Information not available 11/08/2023 Have You Been To An Area Known To Be High Risk For COVID-19? No [email or web address] Information not available 11/08/2023 Are You Deaf Or Do You Have Serious Difficulty Hearing? No [email or web address] Information not available 11/08/2023 What Type Of Diet Are You Following? REGULAR [email or web address] Information n ot available 11/08/2023 Have You Processed Blood Or Body Fluids From An Ebola Virus Disease Patient Without Appropriate PPE? No [email or web address] Information not available 11/08/2023 Do You Reside In Or Have You Traveled To An Area Where Ebola Virus Transmission Is Active? No [email or web address] Information not available 11/08/2023 Have There Been Any Changes To Your Family Or Social Situation? No [email or web address] Information no t available 11/08/2023 What Is The Fluoride Status Of Your Home? Unknown [email or web address] Information not available 11/08/2023 Are There Any Guns Present In Your Home? Yes [email or web address] Information not available 11/08/2023 Have You Recently Or Are You Planning To Travel To An Area With Zika Virus? No [email or web address] Information not available 11/08/2023 Do You Use Insect Repellent Routinely? No [email or web address] Information not available 11/08/2023 What Was The Date Of Your Most Recent Tobacco Screening? 11/27/2024 Information not available 12/21/2024 How Many Children Do You Have? 1 [email or web address] Information not available 11/08/2023 Are There Any Occupational Health Risks Where You Work? No [email or web address] Information not available 11/08/2023 Do You Have Any Pets? No [email or web address] Information not available 11/08/2023 Do You Use Protection Against STDs? No [email or web address] Information not available 11/08/2023 What Is Your Relationship Status? Single [email or web address] Information not available 11/08/2023 Do You Use Your Seat Belt Or Car Seat Routinely? Yes [email or web address] Information not available 11/08/2023 Are You Sexually Active? Yes [email or web address] Information not available 11/08/2023 Do You Have Smoke And Carbon Monoxide Detectors In Your Home? Yes [email or web address] Information not available 11/08/2023 Are You Passively Exposed To Smoke? No Information no t available 11/25/2022 How Much Tobacco Do You Smoke? No [email or web address] Information not available 11/25/2022 Do You Use Sunscreen Routinely? No [email or web address] Information not available 11/08/2023 Has Tobacco Cessation Counseling Been Provided? No [email or web address] Information not available 11/08/2023 Do You Have Difficulty Walking Or Climbing Stairs? No [email or web address] Information not available 11/08/2023 Are You Currently In School? No Information not available 11/08/2023 What Contraceptive Method Was Reported At Start Of This Visit? None [email or web address] Information not available 11/08/2023 Sex: Female Functional Status Question Answer Note LastModified by Organizat ion Details LastModified Time Do you or have you ever used smokeless tobacco? Never used smokeless tobacco Information not available 11/25/2022 Are you currently employed? Yes [email or web address] Information not available 11/08/2023 Do you have transportation difficulties? No Information not available 11/08/2023 Are you able to care for yourself? Yes Information n ot available 11/08/2023 Do you have difficulty dressing or bathing? No [email or web address] Information not available 11/08/2023 Do you or have you ever used e-cigarettes or vape? Current user of electronic cigarettes Information not available 11/08/2023 What is your exercise level? Moderate [email or web address] Information not available 11/25/2022 Do you use any illicit or recreational drugs? No Information not available 11/25/2022 Do you or have you ever used any other forms of tobacco or nicotine? Yes [email or web address] Information not available 11/08/2023 What is your level of alcohol consumption? None Information not available 11/25/2022 Are you able to walk? YESWOREST [email or web address] Information not available 11/08/2023 Do you have difficulty doing errands alone? No [email or web address] Information not available 11/08/2023 What is your occupation? [employer] for [employer] [email or web address] Information not available 11/08/2023 Mental Status Question Answer Note LastModified by Organizat ion Details LastModified Time Do you feel stressed (tense, restless, nervous, or anxious, or unable to sleep at night)? [id number] Information not available 11/25/2022 Do you have difficulty concentrating, remembering or making decisions? No [email or web address] Information no t available 11/08/2023 Family History Relationship Description Onset Age of this Age Resolved Age Notes LastModified by Organization Details LastModified Time Father No current problems or disability [email or web address] Not available 05/2024 14:24:15 Mother No current problems or disability [email or web address] Not available 05/2024 14:24:15 Brother No current problems or disability [email or web address] Not available 05/05 12:34:01 Sister No current problems or disability Not available 05/05 12:33:54 Maternal Grandmother Family history of malignant neoplasm 40 Breast CA Not available 05/05/2024 12:35:44 Maternal Grandfather Family history of malignant neoplasm Unspec ified type Not available 05/05/2024 12:35:21 Paternal Grandfather Family history of malignant neoplasm Skin CA-michael anoma Not available 05/05/2024 12:35:31 Medical History Condition Response Anxiety Disorder Y Allergies/Hayfever Y Heart Problems N Vision or Eye Problems Y Arthritis N Kidney Stones N Hyperthyroidism N Hospitalizations N Hernia N Abuse/Domestic Violence N Asthma N ADD/ADHD N Anemia N Jaundice N High Cholesterol N Anesthesia Complications N Hepatitis N Heart Disease N Hypertension N Autism Spectrum Disorder (ASD) N Kidney Disease N Gynecological History Statement/Question Response Abnormal Pap N Flow Moderate Frequency of Cycle (Q days) 28 Sexually Active? Y Menses Monthly Y STIs/STDs N HPV Vaccine Y Duration of Flow (days) 4 Date of Last Pap Smear 10/11/2020 LMP Approximate Obstetrics History GPAL:G 0 P 0 0 0 0 Immunizations Vaccine Type Date Status Note Provider Nam e and Address Organization Details Recorded Time Influenza, recombinant, quadrivalent, PF 0 completed KARLIE Smith [address], [address], [address], [place] - [facility] & [place] 11/25/2022 17:31:49 COVID-19, mRNA, LNP-S, PF, 100 mcg/0.5mL dose or 50 mcg/0.25mL dose 1 completed Not Available [facility] 11/05/2023 08:52:34 COVID-19, mRNA, LNP-S, PF, 100 mcg/0.5mL dose or 50 mcg/0.25mL dose 0 completed KARLIE Smith [address] [facility], [address], [address], [place] [facility] & [place] 11/25/2022 11:51:58 Influenza, split virus, trivalent, PF 6 completed Not Available [facility] 11/05/2023 08:52:34 HPV, quadrivalent 7 completed KARLIE Smith [address], [address], [place], [address], [place] [facility] [place] & [place] 11/25/2022 11:51:58 HPV, quadrivalent 7 completed KARLIE Smith [address], [address], [place], [address], [place] [facility] & [place] 11/25/2022 11:51:59 HPV, quadrivalent 6 completed KARLIE Smith [address], [address], [place], [address], [place] [facility] & [place] 11/25/2022 11:51:59 Influenza, split virus, quadrivalent, PF 8 completed KARLIE Smith [address], [address], [place], [address], [place] [facility] & [place] 11/25/2022 11:51:59 Hib, unspecified formulation 1 completed KARLIE Smith [address], [address], [place], [address], [place] [facility] & [place] 11/25/2022 17:31:49 Hib, unspecified formulation 0 completed KARLIE Smith [address], [address], [place], [address], [place] 11/25/2022 17:31:49 Hib, unspecified formulation 0 completed KARLIE Smith [address], [address], [place], [address], [place] [facility] & [place] 11/25/2022 17:31:49 IPV 4 completed KARLIE Smith [address], [address], [place], [address], [place] [facility] & [place] 11/25/2022 17:31:49 IPV 0 completed KARLIE Smith [address], [address], [place], [address], [place] [facility] & [place] 11/25/2022 17:31:49 IPV 1 completed KARLIE Smith [address], [address], [place], [address], [place] & [place] 11/25/2022 17:31:49 IPV 0 completed KARLIE Smith [address], [address], [place], [address], [place] 11/25/2022 17:31:49 MMR 4 completed KARLIE Smith [address], [address], [place], [address], [place] & [place] 11/25/2022 17:31:49 MMR 1 completed KARLIE Smith [address], [address], [place], [address], [place] & [place] 11/25/2022 17:31:49 COVID-19, mRNA, LNP-S, PF, 100 mcg/0.5mL dose or 50 mcg/0.25mL dose 1 completed KARLIE Smith [address], [address], [place], [address], [place] [facility] & [place] 11/25/2022 17:31:49 COVID-19, mRNA, LNP-S, PF, 100 mcg/0.5mL dose or 50 mcg/0.25mL dose 0 completed KARLIE Smith [address], [address], [place], [address], [place] [facility] & [place] 11/25/2022 17:31:49 pneumococcal conjugate PCV 7 1 completed KARLIE Smith [address], [address], [place], [address], [place] & [place] 11/25/2022 17:31:49 pneumococcal conjugate PCV 7 1 completed KARLIE Smith [address], [address], [place], [address], [place] [facility] [facility] & [place] 11/25/2022 17:31:49 pneumococcal conjugate PCV 7 0 completed KARLIE Smith [facility] [address], [address], [place], [address], [place] [facility] & [place] 11/25/2022 17:31:49 Tdap 1 completed KARLIE Smith [facility] [address], [address], [place], [address], [place] [facility] & [place] 11/25/2022 17:31:49 varicella 1 KARLIE Lugo [facility] [address], [address], [place], [address], [place] [facility] [facility] & [place] 11/25/2022 17:31:49 varicella 7 completed KARLIE Smith [address], [address], [place], [address], [place] [facility] & [place] 11/25/2022 17:31:49 Influenza, split virus, trivalent, preservative 1 KARLIE Lugo [address], [address], [place], [address], [place] [facility] & [place] 11/25/2022 17:31:49 Influenza, split virus, trivalent, preservative 9 completed KARILE Smith [address], [address], [place], [address], [place] [facility] & [place] 11/25/2022 17:31:49 Influenza, split virus, trivalent, preservative 3 completed KARLIE Smith [address], [address], [place], [address], [place] [facility] & [place] 11/25/2022 17:31:49 Hep B, adolescent or pediatric 0 completed KARLIE Smith [address], [address], [place], [address], [place] [facility] - [facility] & [place] 11/25/2022 17:31:49 Hep B, adolescent or pediatric 0 completed KARLIE Smith [address], [address], [place], [address], [place] [facility] - [facility] & [place] 11/25/2022 17:31:49 Hep B, adolescent or pediatric 0 completed KARLIE Smith [address], [address], [place], [address], [place] - [facility] - [facility] & [place] 11/25/2022 17:31:49 Hep A, ped/adol, 2 dose 6 completed KARLIE Smith [address], [address], [place], [address], [place] [facility] - [facility] & [place] 11/25/2022 17:31:49 Hep A, ped/adol, 2 dose 7 completed KARLIE Smith [address], [address], [place], [address], [place] [facility] & [place] 11/25/2022 17:31:49 DTaP, unspecified formulation 4 completed KARLIE Smith [address], [address], [place], [address], [place] - [facility] - [facility] & [place] 11/25/2022 17:31:49 DTaP, unspecified formulation 0 completed KARLIE Smith [address], [address], [place], [address], [place] - [facility] - [facility] & [place] 11/25/2022 17:31:49 DTaP, unspecified formulation 1 completed KARLIE Smith [address], [address], [place], [address], [place] - [facility] - [facility] & [place] 11/25/2022 17:31:49 DTaP, unspecified formulation 0 completed KARLIE Smith [address] [place] [address], [address], [place], [address], [place] [facility] - [facility] & [place] 11/25/2022 17:31:49 DTaP, unspecified formulation 0 completed KARLIE Smith [address] [place] [address], [address], [place], [address], [place] - [facility] - [place] & [place] 11/25/2022 17:31:49 meningococcal MCV4, unspecified formulation 1 completed KARLIE Smith [address] [place] [address], [address], [place], [address], [place] - [facility] - [place] & [place] 11/25/2022 17:31:49 Influenza, split virus, quadrivalent, PF 6 completed KARLIE Smith [address] [place] [address], [address], [place], [address], [place] - [facility] - [place] & [place] 11/25/2022 17:31:49 Past Encounters Encounter ID Performer Location Encounter Start Date Encounter Closed Date Diagnosis/Indication Diagnosis SNOMED-CT Code Diagnosis ICD10 Code Diagnosis Note [id number] KARLIE Smith [address] [address] 02/14/2025 11:32:53 02/21/2025 07:27:52 Insect bite of finger [id number] S60.469A W57.XXXA Health Concerns Section Related Observation LastModified by Organization Detai ls LastModified Time None Recorded Concern Status LastModified by Organization Details LastModified Time None Recorded Payers Encounter Date Sequence Insurance Name Policy Number Policy Winters Covered Member ID Winters Member ID Guarantor Name 02/14/2025 2 [facility] [place] ([place] [id number] Kushal Nolasco [id number] Kushal Nolasco 02/14/2025 1 [facility] (PPO) [id number] Kushal Nolasco [id number] Kushal Nolasco Notes Date Note Type Note Provider Name and Address Organization Details Recorded Time 02/14/2025 text/html c/o possible spider bite on right 5th digit that worsened overnight. Denies fever, muscle pain, numbness of extrmeity. KARLIE Smith [address] [place] [address], [address], [place], [address], [place] - [facility] & [place] 02/16/2025 18:37:22 OBGyn Episode No OBEpisode recorded.
--- OUTSIDE RECORDS SUMMARY | 2025-03-07 08:39 | XMS_ITS | Data Portability ---
Author Organization [place] - [facility] [place] Address [address] [place] [address] Care Team Providers Care Sports Recruiter Name Role Phone SHAYLEE WELLS Primary Care Provider Assessment No assessment recorded. Plan of Treatment Reminders Order Date Submit Date Provider Last Modified By Organization Details Last Modified Time Details Appointments Physical Exam 30 min 2024 02:00P AKRLIE Haley Not available Not available Not available Lab influenza virus A + B and SARS CoV 2 (COVID-19 ) and RSV RNA panel, LORENZO+probe , respirato ry specimen [address], [address], 12/21/2024 10:32:29 HbA1c (hemoglob in A1c), blood 2024 025 [facility], [address] [place] [address], [address], 11/17/2024 10:37:39 lipid panel, serum 2024 025 [facility], [address] [place] [address], [address], 11/17/2024 10:37:38 TSH + free T4, serum 2024 025 [facility], [address] [place] [address], [address], 11/17/2024 10:37:37 CBC w/ auto diff 2023 024 [facility], [address] [place] [address], [address], 05/25/2024 09:39:36 lipid panel, serum 2023 024 [facility], [address] [place] [address], [address], 05/25/2024 09:39:36 BMP, serum or plasma 2023 024 [facility], [address] [place] [address], [address], 05/25/2024 09:39:35 potassium , serum or plasma 2023 024 [facility], [address] [place] [address], [address], 06/14/2024 10:18:49 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 Surgeries None recorded. Imaging XR, chest, 2 view 2024 025 [facility] [address] [place] [address] [place], [address], 01/01/2025 11:33:08 Medication Orders mupirocin 2 % topical ointment 2024 025 [facility], [address], [place], [address], 02/14/2025 12:27:40 hydrocort isone 1 % topical cream 2024 025 [facility], [address], [place], [address], 02/14/2025 12:27:41 cephalexi n 500 mg capsule 2024 025 [facility], [address], [place], [address], 02/14/2025 12:27:43 Medrol (Juliano) 4 mg tablets in a dose pack 2024 025 [facility], [address], [place], [address], 12/21/2024 09:36:27 albuterol sulfate HFA 90 mcg/actua tion aerosol inhaler 2024 025 [facility], [address], [place], [address], 12/21/2024 09:36:25 dexametha sone sodium phosphate 4 mg/mL injection solution [address] [facility], [address], [place], [address], 12/21/2024 10:32:29 cyclobenz aprine 10 mg tablet 2023 025 [facility], [address], [place], [address], 11/16/2024 10:31:17 Naprosyn 500 mg tablet 2023 025 [facility], [address], [place], [address], 11/16/2024 10:13:14 dexametha sone sodium phosphate 4 mg/mL injection solution 2023 024 [email or web address] Not available 11/16/2024 10:09:35 ketorolac 60 mg/2 mL intramusc ular solution 2023 024 [email or web address] Not available 11/16/2024 10:09:37 albuterol sulfate HFA 90 mcg/actua tion aerosol inhaler 2023 0814/2 024 [facility], [address], [place], [address], 05/24/2024 14:43:33 Patient TargetsNo targets recorded. Patient Instructions Encounter Date Encounter Id Patient Instructions Last Modified By Organization Details Last Modified Time 05/24/2024 [id number] allergic reaction: care instructions Not available 05/24/2024 14:49:44 heart-healthy diet: care instructions [email or web address] Not available 05/24/2024 14:52:21 hypokalemia: car e instructions [email or web address] Not available 05/24/2024 14:49:45 Advised to use epi-pen if another anaphylactic reaction. Not available 05/24/2024 14:47:33 08/17/2024 [id number] acute low back pain: exercises [email or web address] Not available 08/17/2024 08:29:59 deciding about spinal manipulation for low back pain [email or web address] Not available 08/17/2024 08:29:59 getting back to normal after low back pain: care instructions Not available 08/17/2024 08:29:59 Advised patient to return to clinic in 2 days if no improvement or worsening symptoms. Not available 08/17/2024 08:35:28 11/16/2024 [id number] learning about high blood sugar Not available 11/16/2024 11:15:49 learning about low-carbohydrate diets [email or web address] Not available 11/16/2024 11:15:49 12/21/2024 [id number] influenza (flu): care instructions Not available 12/21/2024 12:45:43 pneumonia: care instructions Not available 12/21/2024 12:45:43 she is to do the chest X ray in 4-6 weeks to make sure clear. She does not start her steroid pack unless she worsens with coughing, wheezing, etc. Not available 12/21/2024 12:45:12 Advised to take Vitmain C 1000mg dialy, D 2000 IU daily & zinc 50 mg dialy for immune support. . Advised patient to move around or walk in place every 2-3 hours with deep breathing exercises or use of spirometer for pulmonary exercise. Advised rest fluids and fluids. Advised patient to keep a check on there oxygen with either a pulse oximeter or an oximeter downloaded via ronnie by phone. If oxygen drops below 90% go to the ER for evaluation. Go to ER for any worsening of symptoms, fever, chest pains, increasing shortness of air, lethargy etc.. [email or web address] Not available 12/21/2024 12:46:07 02/14/2025 [id number] Advised patient to return to clinic in 2 days if no improvement or if worsening of symptoms. Advised patient to go to the ER if fever above 103, chest pains, shortness of air, lethargy or confusion, signs of dehydration, unilateral weakness, slurred speech, severe headache, etc. Follow-up with Provider/PCP in 2-3 days. 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 for Aller gic reaction Referring Physician: Shaylee Wells, Family Medicine, Encounter Date: 05/24/2024 Results Created Date Observation Date Name Description Value Unit Range Abnormal Flag Note LastModifiedBy Organization Detail LastModifiedTime 05/24/2005/25/2024 BMP7+ EGFR glucose 84 mg/dL 70-99 normal Not Available [facility] ([facility]) [address] [place], [address], 05/25/2024 09:39:35 05/24/2005/25/2024 BMP7+ EGFR BUN 10 mg/dL 6-20 normal Not Available [facility] ([facility]) [address] [place], [address], 05/25/2024 09:39:35 05/24/20 24 05/25/2024 BMP7+ EGFR creatinine 0.88 mg/dL 0.57-1 .00 normal Not Available [facility] ([facility]) [address] [place], [address], 05/25/2024 09:39:35 05/24/20 24 05/25/2024 BMP7+ EGFR eGFR 94 mL/mi n/1.7 3 >59 normal Not Available [facility] ([facility]) [address] [facility], [place], [address], 05/25/2024 09:39:35 05/24/20 24 05/25/2024 BMP7+ EGFR sodium 139 mmol/ L 134-14 4 normal Not Available [facility] ([facility]) [address] [facility], [place], [address], 05/25/2024 09:39:35 05/24/20 24 05/25/2024 BMP7+ EGFR potassium 4.1 mmol/ L 3.5-5. 2 normal Not Available [facility] ([facility]) [address] [facility], [place], [address], 05/25/2024 09:39:35 05/24/20 24 05/25/2024 BMP7+ EGFR chloride 103 mmol/ L 96-106 normal Not Available [facility] ([facility]) [address] [place], [address], 05/25/2024 09:39:35 05/24/20 24 05/25/2024 BMP7+ EGFR carbon dioxide, total 21 mmol/ L 20-29 normal Not Available [facility] ([facility]) [address] [place], [address], 05/25/2024 09:39:35 05/24/20 24 05/25/2024 CBC WITH DIFFE RENTI AL/PL ATELE T WBC COMMEN T x10e3 /uL Test not perfo rmed. No laven dylan top tube submi tted. Not Available [facility] ([facility]) [address] [place], [address], 05/25/2024 09:39:35 05/24/20 24 05/25/2024 CBC WITH DIFFE RENTI AL/PL ATELE T RBC TNP Test not perfo rmed Not Available [facility] ([facility]) [address] [facility] [place], [address], 05/25/2024 09:39:35 05/24/20 24 05/25/2024 CBC WITH DIFFE RENTI AL/PL ATELE T hemoglobin TNP Test not perfo rmed Not Available [facility] ([facility]) [address] [facility], [place], [address], 05/25/2024 09:39:35 05/24/20 24 05/25/2024 CBC WITH DIFFE RENTI AL/PL ATELE T hematocrit TNP Test not perfo rmed Not Available [facility] ([facility]) [address] [facility], [place], [address], 05/25/2024 09:39:35 05/24/20 24 05/25/2024 CBC WITH DIFFE RENTI AL/PL ATELE T MCV CIRCULAR SAWYER STONE Not Available [facility] ([facility]) [address] [facility], [place], [address], 05/25/2024 09:39:35 05/24/20 24 05/25/2024 CBC WITH DIFFE RENTI AL/PL ATELE T MCH CIRCULAR SAWYER STONE Not Available [facility] ([facility]) [address] [facility], [place], [address], 05/25/2024 09:39:35 05/24/20 24 05/25/2024 CBC WITH DIFFE RENTI AL/PL ATELE T MCHC CIRCULAR SAWYER STONE Not Available [facility] ([facility]) [address] [facility], [place], [address], 05/25/2024 09:39:35 05/24/20 24 05/25/2024 CBC WITH DIFFE RENTI AL/PL ATELE T RDW CIRCULAR SAWYER STONE Not Available [facility] ([facility]) [address] [facility], [place], [address], 05/25/2024 09:39:35 05/24/20 24 05/25/2024 CBC WITH DIFFE RENTI AL/PL ATELE T platelets TNP Test not perfo rmed Not Available [facility] ([facility]) [address] [facility], [place], [address], 05/25/2024 09:39:35 05/24/20 24 05/25/2024 CBC WITH DIFFE RENTI AL/PL ATELE T neutrophils TNP Test not perfo rmed Not Available [facility] ([facility]) [address] [place], [address], 05/25/2024 09:39:35 05/24/20 24 05/25/2024 CBC WITH DIFFE RENTI AL/PL ATELE T lymphs TNP Test not perfo rmed Not Available [facility] ([facility]) [address] [place], [address], 05/25/2024 09:39:35 05/24/20 24 05/25/2024 CBC WITH DIFFE RENTI AL/PL ATELE T monocytes TNP Test not perfo rmed Not Available [facility] ([facility]) [address] [facility], [place], [address], 05/25/2024 09:39:35 05/24/20 24 05/25/2024 CBC WITH DIFFE RENTI AL/PL ATELE T eos TNP Test not perfo rmed Not Available [facility] ([facility]) [address] [place], [address], 05/25/2024 09:39:35 05/24/20 24 05/25/2024 CBC WITH DIFFE RENTI AL/PL ATELE T basos CIRCULAR SAWYER STONE Not Available [facility] ([facility]) [address] [place], [address], 05/25/2024 09:39:35 05/24/20 24 05/25/2024 CBC WITH DIFFE RENTI AL/PL ATELE T immature cells CIRCULAR SAWYER STONE Not Available [facility] ([facility]) [address] [place], [address], 05/25/2024 09:39:35 05/24/20 24 05/25/2024 CBC WITH DIFFE RENTI AL/PL ATELE T neutrophils (absolute) CIRCULAR SAWYER STONE Not Available [facility] ([facility]) [address] [place], [address], 05/25/2024 09:39:35 05/24/20 24 05/25/2024 CBC WITH DIFFE RENTI AL/PL ATELE T lymphs (absolute) TNP Test not perfo rmed Not Available [facility] ([facility]) [address] [place], [address], 05/25/2024 09:39:35 05/24/20 24 05/25/2024 CBC WITH DIFFE RENTI AL/PL ATELE T monocytes(ab solute) CIRCULAR SAWYER STONE Not Available [facility] ([facility]) [address] [place], [address], 05/25/2024 09:39:35 05/24/20 24 05/25/2024 CBC WITH DIFFE RENTI AL/PL ATELE T eos (absolute) TNP Test not perfo rmed Not Available [facility] ([facility]) [address] [place], [address], 05/25/2024 09:39:35 05/24/20 24 05/25/2024 CBC WITH DIFFE RENTI AL/PL ATELE T baso (absolute) TNP Test not perfo rmed Not Available [facility] ([facility]) [address] [place], [address], 05/25/2024 09:39:35 05/24/20 24 05/25/2024 CBC WITH DIFFE RENTI AL/PL ATELE T immature granulocytes CIRCULAR SAWYER STONE Not Available [facility] ([facility]) [address] [place], [address], 05/25/2024 09:39:35 05/24/20 24 05/25/2024 CBC WITH DIFFE RENTI AL/PL ATELE T immature grans (abs) CIRCULAR SAWYER STONE Not Available [facility] ([facility]) [address] [facility], [place], [address], 05/25/2024 09:39:35 05/24/20 24 05/25/2024 CBC WITH DIFFE RENTI AL/PL ATELE T NRBC CIRCULAR SAWYER STONE Not Available [facility] ([facility]) [address] [facility], [place], [address], 05/25/2024 09:39:35 05/24/20 24 05/25/2024 CBC WITH DIFFE RENTI AL/PL ATELE T hematology comments: CIRCULAR SAWYER STONE Not Available [facility] ([facility]) [address] [facility], [place], [address], 05/25/2024 09:39:35 05/24/20 24 05/25/2024 LIPID PANEL cholesterol, total 234 mg/dL 100-19 9 above high normal Not Available [facility] ([facility]) [address] [facility], [place], [address], 05/25/2024 09:39:36 05/24/20 24 05/25/2024 LIPID PANEL triglyceride s 235 mg/dL 0-149 above high normal Not Available [facility] ([facility]) [address] [facility], [place], [address], 05/25/2024 09:39:36 05/24/20 24 05/25/2024 LIPID PANEL HDL cholesterol 53 mg/dL >39 normal Not Available [facility]) [address] [facility], [place], [address], 05/25/2024 09:39:36 05/24/20 24 05/25/2024 LIPID PANEL VLDL cholesterol albert 42 mg/dL 5-40 above high normal Not Available [facility] ([facility]) [address] [facility], [place], [address], 05/25/2024 09:39:36 05/24/20 24 05/25/2024 LIPID PANEL LDL chol calc ([facility]) 139 mg/dL 0-99 above high normal Not Available [facility] ([facility]) [address] [place], [address], 05/25/2024 09:39:36 05/24/20 24 05/25/2024 LIPID PANEL LDL calc comment: CIRCULAR SAWYER STONE Not Available [facility] ([facility]) [address] [facility] [place], [address], 05/25/2024 09:39:36 05/24/20 24 05/25/2024 BETH Pineda NOTE please note Commen t The date and/o r time of colle ction was not indic ated on the requi sitio n as requi red by state and jaret al law. The date of recei pt of the speci men was used as the colle ction date if not suppl ied. Not Available [facility] ([facility]) [address] [place], [address], 05/25/2024 09:39:37 11/16/19 25 11/17/2024 TSH+F REE T4 TSH 0.846 uIU/m L 0.450- 4.500 normal Not Available [facility] ([facility]) [address] [place], [address], 11/17/2024 10:37:36 11/16/19 25 11/17/2024 TSH+F REE T4 T4,free(dire ct) 1.17 NG/dL 0.82-1 .77 normal Not Available [facility] ([facility]) [address] [place], [address], 11/17/2024 10:37:36 11/16/19 25 11/17/2024 LIPID PANEL W/ CHOL/ HDL RATIO cholesterol, total 232 mg/dL 100-19 9 above high normal Not Available [facility] ([facility]) [address] [place], [address], 11/17/2024 10:37:38 11/16/19 25 11/17/2024 LIPID PANEL W/ CHOL/ HDL RATIO triglyceride s 127 mg/dL 0-149 normal Not Available [facility] ([facility]) [address] [place], [address], 11/17/2024 10:37:38 11/16/19 25 11/17/2024 LIPID PANEL W/ CHOL/ HDL RATIO HDL cholesterol 54 mg/dL >39 normal Not Available [facility]) [address] [facility], [place], [address], 11/17/2024 10:37:38 11/16/19 25 11/17/2024 LIPID PANEL W/ CHOL/ HDL RATIO VLDL cholesterol albert 23 mg/dL 5-40 Not Available [facility] ([facility]) [address] [place], [address], 11/17/2024 10:37:38 11/16/19 25 11/17/2024 LIPID PANEL W/ CHOL/ HDL RATIO LDL chol calc ([facility]) 155 mg/dL 0-99 above high normal Not Available [facility] ([facility]) [address] [facility], [place], [address], 11/17/2024 10:37:38 11/16/19 25 11/17/2024 LIPID PANEL W/ CHOL/ HDL RATIO LDL calc comment: CIRCULAR SAWYER STONE Not Available [facility] ([facility]) [address] [place], [address], 11/17/2024 10:37:38 11/16/19 25 11/17/2024 LIPID PANEL W/ CHOL/ HDL RATIO T. chol/HDL ratio 4.3 ratio 0.0-4. 4 T. Chol/ HDL Ratio Men Women 1/2 Avg.R isk 3.4 3.3 Avg.R isk 5.0 4.4 2X Avg.R isk 9.6 7.1 3X Avg.R isk 23.4 11.0 Not Available [facility] ([facility]) [address] [facility], [place], [address], 11/17/2024 10:37:38 11/16/19 25 11/17/2024 HEMOG LOBIN A1C hemoglobin A1C 5.4 % 4.8-5. 6 normal Predi abete s: 5.7 - 6.4 Diabe conrad: >6.4 Glyce geetha contr ol for adult s with diabe conrad: <7.0 Not Available [facility] ([facility]) [address] [facility], [place], [address], 11/17/2024 10:37:39 12/22/19 25 12/21/2024 influ victoriano virus A + B and SARS CoV 2 (COVI D-19) and RSV RNA panel , LORENZO+p robe, respi rator y speci men FLU A positi ve Not Available [address], [address], 12/21/2024 09:19:08 12/22/19 25 12/21/2024 influ victoriano virus A + B and SARS CoV 2 (COVI D-19) and RSV RNA panel , LORENZO+p robe, respi rator y speci men FLU B negati ve Not Available [address], [address], 12/21/2024 09:19:08 12/22/19 25 12/21/2024 influ victoriano virus A + B and SARS CoV 2 (COVI D-19) and RSV RNA panel , LORENZO+p robe, respi rator y speci men SARS-CoV-2 negati ve Not Available [address], [address], 12/21/2024 09:19:08 12/22/19 25 12/21/2024 influ victoriano virus A + B and SARS CoV 2 (COVI D-19) and RSV RNA panel , LORENZO+p robe, respi rator y speci men RSV negati ve Not Available [address], [place], [address], 12/21/2024 09:19:08 01/02/20 25 01/01/2025 XR, chest , 2 view No observ ation record ed. [facility] [address], [place], [address], 01/01/2025 14:44:07 01/03/20 25 01/01/2025 CT, angio gram, chest , w/ contr ast No observ ation record ed. [address] [place] [address], [place], [address], 01/02/2025 13:54:29 01/03/20 25 01/01/2025 elect rocar diogr am, routi ne ECG, 12 leads min No observ ation record ed. [place] [id number], [place], [address], 01/02/2025 13:54:07 01/03/20 25 01/02/2025 XR, chest , 2 view No observ ation record ed. [place] [id number], [place], [address], 01/03/2025 16:39:28 01/03/20 25 01/02/2025 XR, chest , 2 view No observ ation record ed. [place] [id number], [place], [address], 01/03/2025 16:39:28 01/04/20 25 01/01/2025 CT, angio gram, chest , w/ contr ast No observ ation record ed. [address], [place], [address], 01/04/2025 08:51:00 01/04/20 25 01/01/2025 elect rocar diogr am, routi ne ECG, 12 leads min; inter preta tion and repor t (PROC ) No observ ation record ed. [facility] [address], [place], [address], 01/04/2025 08:50:20 Result Notes None recorded. Problems Name Problem SNOMED Code Status Onset Date Resolution Date Notes Provider Name and Address Organization Details Recorded Time Menorrhagia 101326658 Active 2024 KARLIE Smith [facility] [address], [address], [place], [address], [place] [facility] [place] 5 11:18:12 Hyperglyce ia 82768611 Active 2024 KARLIE Smith [address] [place] [address], [address], [place], [address], [place] [facility] [place] 5 11:18:14 Anxiety 11174382 Active 2022 KARLIE Smith [address] [place] [address] Drive, [address], [place], [address], [place] [facility] [place] 3 11:51:58 Fibroadenom a of left breast 9473570781253 102 Active KARLIE Smith [address] [place] [address], [address], [place], [address], [place] [facility] [place] 3 11:51:58 Otitis externa of left ear 3122354736650 109 Active KARLIE Smith [address] [place] [address], [address], [place], [address], [place] [facility] [place] 3 11:51:58 Mass of left breast 9280791204120 9103 Active KARLIE Smith [address] [place] [address], [address], [place], [address], [place] [facility] [place] 3 11:51:58 Acute bacterial pharyngitis 416839516 Active KARLIE Smith [address] [place] [address] Drive, [address], [place], [address], [place] [facility] & [place] 3 11:51:58 Mixed hyperlipide tana 952205540 Active KARLIE Smith [address], [address], [place], [address], [place] [facility] & [place] 3 11:51:58 Right sided abdominal pain [id number] KARLIE Boyd [address], [address], [place], [address], [place] [facility] [place] [facility] & [place] 3 11:51:58 Patient encounter status [id number] KARLIE Boyd [address], [address], [place], [address], [place] [facility] & [place] 3 11:51:58 Pharyngitis [id number] KARLIE Boyd [address], [address], [place], [address], [place] [facility] [place] & [place] 3 11:51:58 Environment al allergy [id number] KALRIE Boyd [address], [address], [place], [address], [place] [facility] [place] [facility] & [place] 3 11:51:58 Obese class I 9391133044176 07 Active KARLIE Smith [address], [address], [place], [address], [place] [facility] [place] [facility] & [place] 3 11:51:58 Obese class II 5008063883547 05 Active KARLIE Smith [address], [address], [place], [address], [place] [facility] [place] [facility] & [place] 3 11:51:58 Disturbance in mood [id number] KARLIE Boyd [address], [address], [place], [address], [place] [facility] [place] [facility] & [place] 3 11:51:58 Impetigo 83415868 Active KARLIE Smith [address], [address], [place], [address], [place] [facility] [place] 3 11:51:58 Weight gain 4325473 Active KARLIE Smith [address], [address], [place], [address], [place] [facility] [place] 3 11:51:58 Disorder of lip 07335725 Active KARLIE Smith [address], [address], [place], [address], [place] [facility] [place] 3 11:51:58 Dysfunction of bilateral eustachian tubes 7514317383124 100 Active 2023 LOGAN WALKER MD [address], [address], [place], [address], [place] [facility] [place] 4 10:29:34 Problem Notes None recorded. Procedures Surgical History Date Name Laterality Status Provider Name and Address Organization Details Recorded Time 025 Venipuncture completed KARLIE Smith [address], [address], [place], [address], [place] [facility] [place] 11/16/2024 11:18:30 024 Venipuncture completed KARLIE Smith [address], [address], [place], [address], [place] [facility] [place] 05/24/2024 14:51:46 024 Venipuncture completed Sylvia Amin [place] [facility] [place] 11/05/2023 10:52:25 023 Venipuncture completed KARLIE Smith [address], [address], [place], [address], [place] [facility] [place] 05/27/2023 16:43:55 023 Venipuncture completed Sylvia Amin [place] [facility] [place] 11/25/2022 12:28:26 021 Date of Last Pap Smear completed KARLIE Smith [address], [address], [place], [address], [facility] [place] [facility] [place] 11/25/2022 11:58:59 020 Breast Surgery completed KARLIE Smith [address], [address], [place], [address], [facility] [place] & [place] 01/08/2023 12:25:01 019 lumpectomy of left breast completed KARLIE Smith [address], [address], [place], [address], [facility] - [facility] [place] & [place] 11/25/2022 11:57:07 006 Appendectomy completed KARLIE Smith [address], [address], [place], [address], [facility] - [facility] [place] & [place] 11/25/2022 11:56:50 extraction of wisdom tooth completed Sylvia Amin [facility] & [place] 05/24/2024 14:18:09 Imaging Results None recorded. Procedure [...] Arterial blood by Pulse oximetry Heart rate Respiratory rate Systolic blood pressure Diastolic blood pressure Provider Name and Address Organization Details Last Updated DateTime 5 153.67 cm 34 kg/m2 51519.8 5 g 97.9 [degF] 98 % 98 % 88 /min 18 /min 126 mm[Hg] 80 mm[Hg] Sylvia Lenard addison [place] - [facility] & [place] 5 10:16:21 Date Recorded Body height Provider Name an d Address Organization Details Last Updated DateTime 11/30/2024 153.67 cm Sylvia Brennan MARILU [facility] & [place] 11/30/2024 08:19:48 Date Recorded Body height Body mass index (BMI) Body weight Body temperature Oxygen saturation Oxygen saturation in Arterial blood by Pulse oximetry Heart rate Respiratory rate Systolic blood pressure Diastolic blood pressure Provider Name and Address Organization Details Last Updated DateTime 5 153.67 cm 34.6 kg/m2 64279.6 3 g 98.1 [degF] 99 % 99 % 85 /min 22 /min 128 mm[Hg] 84 mm[Hg] Sylvia addison MARILU - [facility] & [place] 5 08:42:33 Date Recorded Body height Body mass index (BMI) Body weight Body temperature Oxygen saturation Oxygen saturation in Arterial blood by Pulse oximetry Heart rate Provider Name and Address Organization Details Last Updated DateTime 5 153.67 cm 36.1 kg/m2 04472.3 7 g 97.8 [degF] 98 % 98 % 80 /min [facility] - [facility] [place] [facility] [place] 5 11:53:11 Date Recorded Body height Body mass index (BMI) Body weight Body temperature Oxygen saturation Oxygen saturation in Arterial blood by Pulse oximetry Heart rate Respiratory rate Systolic blood pressure Diastolic blood pressure Provider Name and Address Organization Details Last Updated DateTime 4 153.67 cm 34.4 kg/m2 96593.0 3 g 97.9 [degF] 99 % 99 % 87 /min 18 /min 126 mm[Hg] 80 mm[Hg] Sylviatanner NEIL [facility] [place] 4 14:16:45 Date Recorded Body height Body mass index (BMI) Body weight Body temperature Oxygen saturation Oxygen saturation in Arterial blood by Pulse oximetry Heart rate Respiratory rate Systolic blood pressure Diastolic blood pressure Provider Name and Address Organization Details Last Updated DateTime 4 153.67 cm 34 kg/m2 48131.8 5 g 98.1 [degF] 98 % 98 % 87 /min 18 /min 126 mm[Hg] 80 mm[Hg] [facility] [place] 4 08:19:49 Social History Question Answer Notes LastModified by Organizat ion Details LastModified Time Tobacco Smoking Status Never Smoker Sylvia devine, [facility]ILU [facility] [place] 11/25/2022 11:26:49 Do You Have An Advance Directive? No Information n ot available 11/25/2022 Do You Wear A Helmet When Biking? No [email or web address] Information not available 11/08/2023 Are You Blind Or Do You Have Difficulty Seeing? No [email or web address] Information n ot available 11/25/2022 Is Blood Transfusion Acceptable In An Emergency? Yes [email or web address] Information not available 11/08/2023 What Is Your Level Of Caffeine Consumption? Occasional [email or web address] Information not available 11/08/2023 In The 14 Days Before Symptom Onset, Have You Had Close Contact With A Laboratory-confirm ed COVID-19 While That Case Was Ill? No [email or web address] Information n ot available 11/08/2023 In The 14 Days Before Symptom Onset, Have You Had Close Contact With A Person Who Is Under Investigation For COVID-19 While That Person Was Ill? No [email or web address] Information not available 11/08/2023 Have You Been To An Area Known To Be High Risk For COVID-19? No [email or web address] Information not available 11/08/2023 Are You Deaf Or Do You Have Serious Difficulty Hearing? No [email or web address] Information not available 11/08/2023 What Type Of Diet Are You Following? REGULAR [email or web address] Information n ot available 11/08/2023 Have You Processed Blood Or Body Fluids From An Ebola Virus Disease Patient Without Appropriate PPE? No [email or web address] Information not available 11/08/2023 Do You Reside In Or Have You Traveled To An Area Where Ebola Virus Transmission Is Active? No [email or web address] Information not available 11/08/2023 Have There Been Any Changes To Your Family Or Social Situation? No [email or web address] Information no t available 11/08/2023 What Is The Fluoride Status Of Your Home? Unknown [email or web address] Information not available 11/08/2023 Are There Any Guns Present In Your Home? Yes [email or web address] Information not available 11/08/2023 Have You Recently Or Are You Planning To Travel To An Area With Zika Virus? No [email or web address] Information not available 11/08/2023 Do You Use Insect Repellent Routinely? No Information not available 11/08/2023 What Was The Date Of Your Most Recent Tobacco Screening? 11/27/2024 [email or web address] Information not available 12/21/2024 How Many Children Do You Have? 1 [email or web address] Information not available 11/08/2023 Are There Any Occupational Health Risks Where You Work? No [email or web address] Information not available 11/08/2023 Do You Have Any Pets? No [email or web address] Information not available 11/08/2023 Do You Use Protection Against STDs? No [email or web address] Information not available 11/08/2023 What Is Your Relationship Status? Single [email or web address] Information not available 11/08/2023 Do You Use Your Seat Belt Or Car Seat Routinely? Yes [email or web address] Information not available 11/08/2023 Are You Sexually Active? Yes Information not available 11/08/2023 Do You Have Smoke And Carbon Monoxide Detectors In Your Home? Yes [email or web address] Information not available 11/08/2023 Are You Passively Exposed To Smoke? No Information no t available 11/25/2022 How Much Tobacco Do You Smoke? No [email or web address] Information not available 11/25/2022 Do You Use Sunscreen Routinely? No [email or web address] Information not available 11/08/2023 Has Tobacco Cessation Counseling Been Provided? No Information not available 11/08/2023 Do You Have Difficulty Walking Or Climbing Stairs? No [email or web address] Information not available 11/08/2023 Are You Currently In School? No [email or web address] Information not available 11/08/2023 What Contraceptive Method Was Reported At Start Of This Visit? None [email or web address] Information not available 11/08/2023 Sex: Female Functional Status Question Answer Note LastModified by Organizat ion Details LastModified Time Do you or have you ever used smokeless tobacco? Never used smokeless tobacco Information not available 11/25/2022 Are you currently employed? Yes [email or web address] Information not available 11/08/2023 Do you have transportation difficulties? No [email or web address] Information not available 11/08/2023 Are you able to care for yourself? Yes [email or web address] Information n ot available 11/08/2023 Do you have difficulty dressing or bathing? No [email or web address] Information not available 11/08/2023 Do you or have you ever used e-cigarettes or vape? Current user of electronic cigarettes [email or web address] Information not available 11/08/2023 What is your exercise level? Moderate [email or web address] Information not available 11/25/2022 Do you use any illicit or recreational drugs? No Information not available 11/25/2022 Do you or have you ever used any other forms of tobacco or nicotine? Yes Information not available 11/08/2023 What is your level of alcohol consumption? None Information not available 11/25/2022 Are you able to walk? YESWOREST [email or web address] Information not available 11/08/2023 Do you have difficulty doing errands alone? No [email or web address] Information not available 11/08/2023 What is your occupation? [employer] for [employer] [email or web address] Information not available 11/08/2023 Mental Status Question Answer Note LastModified by Organizat ion Details LastModified Time Do you feel stressed (tense, restless, nervous, or anxious, or unable to sleep at night)? [id number] [email or web address] Information not available 11/25/2022 Do you have difficulty concentrating, remembering or making decisions? No [email or web address] Information no t available 11/08/2023 Family History [...] Arthritis N Kidney Stones N Hyperthyroidism N Hernia N Hospitalizations N Abuse/Domestic Violence N Asthma N ADD/ADHD N Anemia N Jaundice N High Cholesterol N Hepatitis N Anesthesia Complications N Heart Disease N Hypertension N Autism [...] recombinant, quadrivalent, PF 0 completed KARLIE Smith [address] [place] [address], [address], [place], [address], [facility] & [place] 11/25/2022 17:31:49 COVID-19, mRNA, LNP-S, PF, 100 mcg/0.5mL dose or 50 mcg/0.25mL dose 1 completed Not Available [facility] 11/05/2023 08:52:34 COVID-19, mRNA, LNP-S, PF, 100 mcg/0.5mL dose or 50 mcg/0.25mL dose 0 completed KARLIE Smith [address], [address], [place], [address], [place] [facility] [place] 11/25/2022 11:51:58 Influenza, split virus, trivalent, PF 6 completed Not Available [facility] 11/05/2023 08:52:34 HPV, quadrivalent 7 completed KARLIE Smith [address], [address], [place], [address], [place] [facility] [place] 11/25/2022 11:51:58 HPV, quadrivalent 7 completed KARLIE Smith [address], [address], [place], [address], [place] - [facility] [place] 11/25/2022 11:51:59 HPV, quadrivalent 6 completed KARLIE Smith [address], [address], [place], [address], [place] [facility] [place] 11/25/2022 11:51:59 Influenza, split virus, quadrivalent, PF 8 completed KARLIE Smith [address], [address], [place], [address], [place] [facility] [place] 11/25/2022 11:51:59 Hib, unspecified formulation 1 completed KARLIE Smith [address], [address], [place], [address], [place] [facility] [place] 11/25/2022 17:31:49 Hib, unspecified formulation 0 completed KARLIE Smith [address], [address], [place], [address], [place] [facility] [place] 11/25/2022 17:31:49 Hib, unspecified formulation 0 completed KARLIE Smith [address], [address], [place], [address], [place] - [facility] [place] 11/25/2022 17:31:49 IPV 4 completed KARLIE Smith [address], [address], [place], [address], [place] [facility] [place] & [place] 11/25/2022 17:31:49 IPV 0 completed KARLIE Smith [address], [address], [place], [address], [place] [facility] [facility] [place] 11/25/2022 17:31:49 IPV 1 completed KARLIE Smith [address], [address], [place], [address], [place] [facility] & [place] 11/25/2022 17:31:49 IPV 0 completed KARLIE Smith [address], [address], [place], [address], [place] [facility] & [place] 11/25/2022 17:31:49 MMR 4 completed KARLIE Smith [address], [address], [place], [address], [place] [facility] [place] [facility] [place] 11/25/2022 17:31:49 MMR 1 completed KARLIE Smith [address], [address], [place], [address], [place] [facility] [place] 11/25/2022 17:31:49 COVID-19, mRNA, LNP-S, PF, 100 mcg/0.5mL dose or 50 mcg/0.25mL dose 1 completed KARLIE Smith [address], [address], [place], [address], [place] [facility] [place] & [place] 11/25/2022 17:31:49 COVID-19, mRNA, LNP-S, PF, 100 mcg/0.5mL dose or 50 mcg/0.25mL dose 0 completed KARLIE Smith [address], [address], [place], [address], [place] [facility] & [place] 11/25/2022 17:31:49 pneumococcal conjugate PCV 7 1 completed KARLIE Smith [address], [address], [place], [address], [place] [facility] [facility] & [place] 11/25/2022 17:31:49 pneumococcal conjugate PCV 7 1 completed KARLIE Smith [address], [address], [place], [address], [place] [facility] [facility] & [place] 11/25/2022 17:31:49 pneumococcal conjugate PCV 7 0 completed KARLIE Smith [address], [address], [place], [address], [place] [facility] [facility] [place] 11/25/2022 17:31:49 Tdap 1 completed KARLIE Smith [address], [address], [place], [address], [place] [facility] [facility] & [place] 11/25/2022 17:31:49 varicella 1 completed KARLIE Smith [address], [address], [place], [address], [place] [facility] [facility] & [place] 11/25/2022 17:31:49 varicella 7 completed KARLIE Smith [address], [address], [place], [address], [place] [facility] [facility] [place] 11/25/2022 17:31:49 Influenza, split virus, trivalent, preservative 1 completed KARLIE Smith [address], [address], [place], [address], [place] & [place] 11/25/2022 17:31:49 Influenza, split virus, trivalent, preservative 9 completed KARLIE Smith [address], [address], [place], [address], [place] & [place] 11/25/2022 17:31:49 Influenza, split virus, trivalent, preservative 3 completed KARLIE Smith [address], [address], [place], [address], [place] [facility] & [place] 11/25/2022 17:31:49 Hep B, adolescent or pediatric 0 completed KARLIE Smith [address], [address], [place], [address], [place] [facility] & [place] 11/25/2022 17:31:49 Hep B, adolescent or pediatric 0 completed KARLIE Smith [address], [address], [place], [address], [place] & [place] 11/25/2022 17:31:49 Hep B, adolescent or pediatric 0 completed KARLIE Smith [address], [address], [place], [address], [place] [facility] [place] & [place] 11/25/2022 17:31:49 Hep A, ped/adol, 2 dose 6 completed KARLIE Smith [address], [address], [place], [address], [place] & [place] 11/25/2022 17:31:49 Hep A, ped/adol, 2 dose 7 completed KARLIE Smith [address], [address], [place], [address], [place] & [place] 11/25/2022 17:31:49 DTaP, unspecified formulation 4 completed KARLIE Smith [address], [address], [place], [address], [place] 11/25/2022 17:31:49 DTaP, unspecified formulation 0 completed KARLIE Smith [address], [address], [place], [address], [place] & [place] 11/25/2022 17:31:49 DTaP, unspecified formulation 1 completed KARLIE Smith [address], [address], [place], [address], [place] [facility] & [place] 11/25/2022 17:31:49 DTaP, unspecified formulation 0 completed KARLIE Smith [address], [address], [place], [address], [place] [facility] & [place] 11/25/2022 17:31:49 DTaP, unspecified formulation 0 completed KARLIE Smith [address], [address], [place], [address], [place] & [place] 11/25/2022 17:31:49 meningococcal MCV4, unspecified formulation 1 completed KARLIE Smith [address], [address], [place], [address], [place] [facility] [place] 11/25/2022 17:31:49 Influenza, split virus, quadrivalent, PF 6 completed KARLIE Smith [address], [address], [place], [address], [place] [facility] & [place] 11/25/2022 17:31:49 Past Encounters Encounter ID Performer Location Encounter Start Date Encounter Closed Date Diagnosis/Indication Diagnosis SNOMED-CT Code Diagnosis ICD10 Code Diagnosis Note [id number] KARLIE Smith [address] [address] 11/25/2022 11:04:36 11/25/2022 12:40:59 Active or passive immunization 373875062 Z23 updated, defers tetanus Adult heal th examination 164590263 Z00.01 Body mass index 30+ - obesity 909173611 Z68.31 Skin lesion 74749675 L98 .9 L70.9 Anxiety 36505715 F41.9 [id number] KARLIE Smith [address] [address] 12/03/2022 14:53:15 12/03/2022 16:20:16 Fever 965452601 R50.9 COVID-19 052295617 U07.1 [id number] KARLIE Smith [place] [address] [address]ona [address] 6 01/08/2023 11:58:57 01/08/2023 13:14:11 Hypokalemia 65134082 E87.6 [id number] KARLIE Smith [place] [address] Ort[address] [place] [address] 6 05/27/2023 11:29:37 05/27/2023 11:30:53 Anxiety 36511914 F41.9 Hyperlipidemia 20045157 E78.5 [id number] VALENTIN MCKEON APRN [place] [address] 6 10/08/2023 11:23:01 10/08/2023 11:53:47 Cough 24960196 R05.1 Pain in throat 983153564 R07.0 Pain of ear 166202512 H9 2.01 Viral uppe r respiratory tract infection 713229776 J06.9 Rest, increase fluids, Tylenol and/or Ibuprofen as needed, cool mist humidifier . [id number] VALENTIN MCKEON APRN [place] [address] 6 10/12/2023 11:27:40 10/12/2023 13:46:54 Acute right otitis media 925423693 H66.91 Continue amoxicilli n and loratadine as prescribed . [id number] KARLIE Smith [address] 6 11/05/2023 08:46:31 11/05/2023 17:02:18 Adult health examination 935516646 Z00.01 Active or passive immunization 871815178 Z23 updated, defers tetanus Body mass index 30+ - obesity 045376463 Z68.31 Skin lesion 19650387 L98 .9 L70.9 Anxiety 54533833 F41.9 [id number] KARLIE Smith [address] [place] [address] 6 10/20/2023 12:13:25 10/20/2023 12:54:33 Serous otitis media 62542389 H65.91 [id number] LGOAN WALKER MD [facility]3] ENT [address] [facility] [address] 11/08/2023 10:10:41 11/08/2023 10:29:57 Dysfunction of bilateral eustachian tubes 2014973549 014616 H69.93 - No evidnce of middle ear effusion on exam today. We discussed that it can take up to a month for symptoms or fluid to fully resolve after an episdoe of acute otitis media - Discussed diagnosis of obstructiv e eustachian tube dysfunctio n - Treatment options include observatio n, medical therapy (flonase BID, zyrtec daily, ear popping (self insufflati on, otovent), myringotom y with PE tubes, balloon dilation of eustachian tube. - Recommend consistent daily use of flonase [id number] KARLIE Smith [address] [address] 05/24/2024 14:06:41 05/24/2024 16:42:31 Allergic reaction 132900965 T78.40XA Hypokalemia 90901744 E87 .6 Hyperlipidemia 79897803 E78.5 [id number] KARLIE Smith [address] [address] 08/17/2024 08:07:44 08/17/2024 08:52:59 Acute low back pain 683139021 M54.50 [id number] KARLIE Smith [address] [address] 11/16/2024 10:04:25 11/16/2024 11:28:40 Hyperglycemia 61337650 R73.9 E78.2 Menorrhagia 490789495 N9 2.0 following with Cooper [id number] KARLIE Smith [address] [address] 12/21/2024 08:32:12 12/21/2024 10:24:52 Acute cough 4900716109 12417323 R05.1 Influenza caused by Influenza A virus 240965541 J10.1 Wheezing 12766562 R06.2 Pneumonia 851191705 J18. 9 ?? viral? [id number] KARLIE Smith [address] [address] 02/14/2025 11:32:53 02/21/2025 07:27:52 Insect bite of finger 445968639 S60.469A W57.XXXA Health Concerns Section Related Observation LastModified by Organization Detai ls LastModified Time None Recorded Concern Status LastModified by Organization Details LastModified Time None Recorded Advance Directives Directive N: Payers Insurance Date Sequence Insurance Name Policy Number Policy Winters Covered Member ID Winters Member ID Guarantor Name 02/21/2025 1 [place] [id number] 1 Kushal Nolasco [id number] Kushal Nolasco 10/27/2023 3 MEDICAID-[facility] CHOICES - FFS/TRADITIONA L Kushal Nolasco [id number] Kushal Nolasco 02/21/2025 2 [employer] [place] [id number] Kushal Nolasco [id number] Kushal Nolasco 03/21/2024 1 [place] [id number] 1 Kushal Nolasco [id number] Kushal Nolasco 10/27/2023 1 [employer] [place] Kushal Nolasco [id number] Kushal Nolasco 10/27/2023 1 [place] [id number] 1 Kushal Nolasco [id number] Kushal Nolasco 11/03/2021 1 UNSPECIFIED REMIT PAYOR Kushal Nolasco Notes Date Note Type Note Provider Name and Address Organization Details Recorded Time 05/24/2024 text/html ER visit: starte d cough, SOA, wheezing. Was told allergic reaction but unsure of what? Was given epipen. She denies any further episodes of wheezing. She also had hypokalemia and was treated. She denies previous episodes of allergic reactions, Ate subway the day of reaction. But has eaten there many times. Deneis new detergents, clothes, etc. Mood- improved and doing well. Deneis any side effects.. Lipids- ldl elevated to 166 last visit. Will need to recheck labs and re asses treatment. Advised LFLC diet. KARLIE Smith [address], [address], [place], [address], [facility] & [place] 05/24/2024 14:52:31 08/17/2024 text/html c/o mid back genny n and right upper back and when twist torso it radiates down her right arm. Denies trauma, fall. Was unable to get in to see Dr Monsalve, chiropractor. Jl urinary symptoms. KARLIE Smith [address], [address], [place], [address], [facility] & [place] 08/17/2024 08:35:54 11/16/2024 text/html ER Follow up: Went to ER for excessive menstrual bleeding but was 16 days late. This cycle went from to Wednesday. Pelvic US normal, HCG negative. Saw Dr Gamboa yesterday. He felt since the labs and US was negative and she has family history of breast cancer so hormones were not started. Incidental note of elevated glucose of 188. Patient states that she was fasting. Her last A1C was normal 1 year prior. However, her trigs were elevated in May. I encouraged low carb diet and eating healthier. Discussed possible GLP-1 in the future for weight loss. KARLIE Smith [address], [address], [place], [address], [facility] & [place] 11/16/2024 11:19:01 12/21/2024 text/html ER follow up: went to local ER for chest pain and SOA. Diagnosed with pneumonia and given antibiotics and completed. Since that day she has continued to have cough, nasal congestion and occasional SOA. Since then her has now gotten sick. She is positive for Influenza A today. She most likely had the flu at that time but since it was day 1 did not show on result. Her CBC was normal in ER also. Deneis fever, nausea, vomiting, body aches chills. KARLIE Smith [address], [address], [place], [address], [facility] [place] [facility] [place] 12/21/2024 12:46:15 02/14/2025 text/html c/o possible spider bite on right 5th digit that worsened overnight. Denies fever, muscle pain, numbness of extrmeity. KARLIE Smith [address] [place] [address], [address], [place], [address], [place] [facility] [place] & [place] 02/16/2025 18:37:22 OBGyn Episode No OBEpisode recorded.
--- NOTE | 2025-03-07 09:00 | CT_ITS ---
FINAL REPORT TECHNIQUE: Axial images were obtained through the chest without contrast. Reformatted images were obtained and reviewed. This study was performed with techniques to keep radiation doses as low as reasonably achievable, (ALARA). Individualized dose reduction techniques using automated exposure control or adjustment of mA and/or kV according to the patient's size were employed. CLINICAL HISTORY: Nodules/mass COMPARISON: 01/01/2025 FINDINGS: Previously identified left infrahilar soft tissue density is no longer identified. The left lower lobe bronchi is adequately patent. The previously noted consolidation in the medial left base has resolved. There is a nodule opacity in the periphery of the left lower lobe measuring 7 mm well-seen on image 39 of series 2. The heart size is normal. There is no pericardial or pleural effusion. Limited images of the upper abdomen are unremarkable. IMPRESSION: Previously seen left infrahilar soft tissue density has resolved. Left lower lobe bronchi is adequately patent. Nodular opacity in the periphery of the left lower lobe which is indeterminant. Recommend follow-up in 3 months time to ensure resolution. Reviewed, Interpreted and Dictated by Stefano Orr MD Transcribed by Cinthya Serna Authenticated and [facility]
== END 2025-03-07 23:59 | disposition home or self-care (01) ==
LOC: RAD 08:38
PROVIDERS: PCP Physician Assistant; Visit Provider Internal Medicine Pulmonary Disease
DX: R91.1 Solitary pulmonary nodule (principal); R91.8 Other nonspecific abnormal finding of lung field; J18.9 Pneumonia, unspecified organism; J98.11 Atelectasis; R59.0 Localized enlarged lymph nodes
CPT/HCPCS: 71250